=== PATIENT | male | born 1950 | race Caucasian/White ===

== ENCOUNTER 2017-07-08 09:35 | Day surgery (SDC) | payer MEDICARE, BC ==
--- NOTE | 2017-07-02 20:23 | HP ---
AMENDED REPORT NOW INCLUDES COSIGNER DESIGNATION - ESIGNED BEFORE ADJUSTMENT HISTORY AND PHYSICAL: DATE OF ADMISSION/SURGERY: 07/08/17 PROVIDER: Catina Ribeiro MD * (DICTATED BY YOSI PROCTOR) HISTORY OF PRESENT ILLNESS: Cortez is a 67-year-old male, who presents to the clinic for right wrist pain. He has continued to have right wrist pain for the last 6 months. He denies any history of injury, he feels that it may be related to some overuse. Symptoms occur at work when he is typing, also when he is cycling and playing guitar. He denies any previous injuries except for the left forearm fracture as a child. The pain is relieved by wearing wrist splints, using NSAIDs and stopping activity. He has been using indomethacin for his pain because he theorized this was gout. However, he has not had any recent flares of gout and has actually stopped taking the indomethacin because he feels like it is giving him tinnitus. He is not complaining of any numbness or tingling in his hand or wrist. The pain is primarily located at the ulnar aspect of each wrist and from this more globally and across the dorsum of the wrist. He had an MRI in May with arthrogram, which showed TFCC tear as well as a scapholunate ligament tear. Again, he has not had any injury and he is not symptomatic at the scapholunate junction. The TFCC tear is considerably bothersome to him. He has had a cortisone injection, which was done on . He followed up today to request surgical intervention of the TFCC tear. PAST MEDICAL HISTORY: Includes: 1. Depression. 2. Insomnia. PAST SURGICAL HISTORY: Hernia repair 50 years ago. MEDICATIONS: 1. Xanax. 2. Zolpidem. ALLERGIES: No known drug allergies. FAMILY HISTORY: Father with diabetes and cardiovascular disease with a bypass at 68 years of age. SOCIAL HISTORY: He denies history of smoking and is not a current smoker. He does have rare alcohol. He denies any illicit drugs use. REVIEW OF SYSTEMS: General: He denies fevers, chills, or night sweats. He has no known history of anesthesia problems. HEENT: He denies headache, lightheadedness, or syncopal events. Cardiothoracic: Negative for chest pain, heart palpitations or edema. Pulmonary: Negative for shortness of breath, chronic cough, or COPD. GI: He denies nausea, vomiting, diarrhea, or GERD. : Negative for urinary frequency, urinary urgency, or kidney problems. Musculoskeletal: Negative for chronic or intermittent back pain or fractures. Positive for the symptoms reviewed in the HPI. Neuro: He does endorse depression and anxiety. He denies numbness, seizures, stroke, epilepsy. Endocrine: Negative for diabetes or thyroid issues. Hematological: Negative for easy bruising, anemia, excessive bleeding, history of DVT or PE. PHYSICAL EXAMINATION VITAL SIGNS: Height 70 inches, weight 169 pounds, BMI 24.2. Pulse 62, blood pressure 122/76, temperature 97.0. GENERAL: Well-developed, well-nourished 67-year-old man, in no acute distress. HEENT: Normocephalic, atraumatic. Hearing and vision are grossly intact. PULMONARY: Lungs are clear to auscultation bilaterally. No wheezes, rales, or rhonchi. CARDIO: Regular rate and rhythm. No murmurs appreciated. No pedal edema. ABDOMEN: Soft and nontender. MUSCULOSKELETAL: Bilateral upper extremities, on inspection of bilateral wrists , there is no visible swelling, deformity, erythema, or ecchymosis. He does have tenderness to palpation that seems to be rather mild at the ulnar aspect of each wrist just distal to the ulna. It seems to be worse on the left than on the right. He has full range of motion bilaterally, actively, passively, and against resistance with no exacerbation of his symptoms. 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 He has negative Tinel's of the wrist and elbow bilaterally and negative Anastacio test bilaterally. He has good strength of his thumbs and finger with abduction and adduction. NEUROLOGIC: He is alert and oriented x3. No obvious neurological deficits are noted. He ambulates without a limp. STUDIES: MRI as reviewed in the HPI. IMPRESSION: Triangular fibrocartilage complex tear. PLAN: Right wrist arthroscopy triangular fibrocartilage complex debridement with Dr. Ribeiro on 07/08/17. The patient is to return 7 to 10 days postoperatively for suture removal and followup. A prescription for Deland has been sent to the patient's pharmacy of record, e-prescribed to the patient's pharmacy of record. I- STOP has been checked. FRANKI MARKER, YOSI [id number]/[facility] #: [id number] [facility] CENTERHaleigh
[~2017-07-08 09:35] MED LIST: Buffered Lidocaine 0.9% SYRIN* 5 ML/SYR SYRINGE INTRADERM ONE; Sodium Citrate/Citric Acid* 15 ML UDC ONE; Sodium Citrate/Citric Acid* 15 ML UDC PO ONE
[2017-07-08] MEDS ORDERED: ceFAZolin 2 GM PREMIX (*) 2 GM/50 ML BAG IVPB ONE (09:46)
[2017-07-08] MEDS ORDERED: Bupivacaine 0.5% SDV PF* 30 ML VIAL ONE (10:23)
[2017-07-08] MEDS ORDERED: Dexamethasone IV* 4 MG/ML 1 ML (4 MG) ONE (10:46)
[2017-07-08] MEDS ORDERED: Lidocaine 2% PF * 5 ML VIAL ONE (10:46)
[2017-07-08] MEDS ORDERED: Propofol* 10 MG/ML 20 ML BTL IV PUSH ONE (10:46)
[2017-07-08] MEDS ORDERED: Ketorolac INJ* 30 MG/ML 1 ML VIAL ONE (10:46)
[2017-07-08] MEDS ORDERED: fentaNYL* 50 MCG/ML 2 ML VIAL (100 MCG VIAL) ONE (10:46)
[2017-07-08] MEDS ORDERED: fentaNYL* 50 MCG/ML 2 ML VIAL (100 MCG VIAL) IV PRN (11:16)
[2017-07-08] MEDS ORDERED: Ondansetron INJ* 2 MG/ML VIAL IV PRN (11:16)
[2017-07-08 13:47] VITALS: BP 124/82
--- NOTE | 2017-07-09 09:17 | OP ---
DATE OF OPERATION: 07/08/17 [facility] DATE OF : 46 SURGEON: Catina Ribeiro MD GAUGE CHECKER: YOSI Woo ANESTHESIOLOGIST: Kobe Gross DO ANESTHESIA: General. PRE-OP DIAGNOSIS: Triangular fibrocartilage complex tear of the right wrist. POST-OP DIAGNOSES: 1. Triangular fibrocartilage complex tear of the right wrist. 2. Radiocarpal arthritis. OPERATIVE PROCEDURE: Right wrist arthroscopy and debridement. ESTIMATED BLOOD LOSS: Zero. TOURNIQUET TIME: About 40 minutes. INDICATION FOR PROCEDURE: Cortez is a 67-year-old man with pain in his right wrist, which has failed to improve with conservative treatment. MRI shows a TFCC tear and possible scapholunate ligament tear. The patient presents for arthroscopy of the right wrist and debridement of the TFCC tear. His pain is centered on the ulnar aspect of the wrist. DESCRIPTION OF PROCEDURE: The patient was brought to the operating room and was given a general anesthetic and placed in the supine position on the operating table with a tourniquet around his right upper arm. The skin of his right upper extremity was prepped and draped in the usual sterile fashion. The hand and forearm were exsanguinated and the tourniquet elevated to 250 mmHg. The finger was placed in finger trap and 10 pounds of weight was placed across the wrist joint. A stab incision was made just distal to Mert's tubercle and the arthroscopy cannula was placed in the radiocarpal joint. Diagnostic arthroscopy was performed. There was a full-thickness cartilage defect on the radius, a full thickness cartilage defect on the scaphoid. There was extensive fraying of the scapholunate ligament and positive drive-through sign into the mid carpal joint. There was a very significant and complex tear of the TFCC, abundant surrounding synovitis. A second portal was created in the 4-5 interval and a 2.0 Gator shaver was used to debride the TFCC and all the ulnar sided synovitis. Mid compartment arthroscopy was then performed through a third stab incision. The articular surface in the mid carpal joint were intact but again the scapholunate ligament was found to be not intact. The arthroscopy instruments were removed. The wounds were closed with 4-0 nylon suture in interrupted fashion and the wounds were dressed with Xeroform, 4x4, Webril, and an Danial wrap. The patient tolerated the procedure well and was brought to the recovery room in good condition. [id number]/[facility] #: [id number] [place]
== END 2017-07-08 12:25 | disposition home or self-care (01) ==
LOC: OREAST 09:35
PROVIDERS: ATTEND Orthopaedic Surgery
DX: S63.511A Sprain of carpal joint of right wrist, initial encounter (principal); X50.3XXA Overexertion from repetitive movements, initial encounter; Y93.89 Activity, other specified; Y92.9 Unspecified place or not applicable; M19.031 Primary osteoarthritis, right wrist; F41.8 Other specified anxiety disorders
CPT/HCPCS: A9270-GY; J0690; J1100; J1885; J2704; J3010

== ENCOUNTER 2017-10-03 09:35 | Day surgery (SDC) | payer MEDICARE, BC ==
--- NOTE | 2017-09-29 17:48 | HP ---
PREOPERATIVE HISTORY AND PHYSICAL: DATE OF ADMISSION: 10/03/17 [facility] CHIEF COMPLAINT: Left hand numbness and tingling. HISTORY OF PRESENT ILLNESS: Cortez is a 67-year-old man, who complains of numbness and tingling in his left hand. Nerve conduction study shows moderate carpal tunnel syndrome. He has had a cortisone injection with minimal relief. He presents for left carpal tunnel release. PAST MEDICAL HISTORY: Depression, insomnia, and right wrist TFCC tear. PAST SURGICAL HISTORY: Hernia repair and a right wrist arthroscopy. MEDICATIONS: 1. Xanax. 2. Zolpidem. ALLERGIES: None. FAMILY HISTORY: Diabetes, cardiovascular disease. SOCIAL HISTORY: Rare alcohol use. Denies illicit drug use. Denies history of smoking. He lives alone. REVIEW OF SYSTEMS: Negative for cephalic, cardiovascular, respiratory, gastrointestinal, genitourinary, other musculoskeletal, skin, neurologic, endocrine, and hematologic symptoms. PHYSICAL EXAMINATION GENERAL: He is a healthy-appearing very pleasant male in minimal distress at rest. VITAL SIGNS: He is 70 inches, weighs 180 pounds, pulse is , respirations 16, temperature 97.3. HEENT: Unremarkable. Good range of motion of his neck without pain. Eye movements are concentric. No masses are palpated. LUNGS: Clear to auscultation. Good inspiratory effort. No wheezing. CARDIAC: Regular rate and rhythm without murmur. PERIPHERAL VASCULAR: He has palpable pulses and no peripheral edema. EXTREMITIES: He has a positive Tinel's sign of the median nerve proximal to the wrist. He has weakness with thumb abduction. He has a positive Phalen's test. NEUROLOGIC: He is alert and oriented without focal deficits. IMPRESSION: Left carpal tunnel syndrome. PLAN: For left carpal tunnel release. The surgical procedure, risks, and benefits are explained to the patient and he agrees to proceed. I will see him back in followup for recheck approximately 10 days postop. [id number]/[facility] #: [id number] [facility]PITALHaleigh
[~2017-10-03 09:35] MED LIST changes: -Sodium Citrate/Citric Acid* 15 ML UDC ONE; -Sodium Citrate/Citric Acid* 15 ML UDC PO ONE
[2017-10-03] MEDS ORDERED: Naloxone* 0.4 MG/ML 1 ML VIAL IV PRN (11:03)
[2017-10-03] MEDS ORDERED: fentaNYL* 50 MCG/ML 2 ML VIAL (100 MCG VIAL) ONE (11:37)
[2017-10-03] MEDS ORDERED: Midazolam* 1 MG/ML 2 ML VIAL (2 MG) ONE (11:37)
[2017-10-03] MEDS ORDERED: Lidocaine 2% PF * 5 ML VIAL ONE (11:43)
[2017-10-03] MEDS ORDERED: Propofol* 10 MG/ML 20 ML BTL IV PUSH ONE (11:43)
[2017-10-03 12:33] VITALS: BP 140/83
--- NOTE | 2017-10-04 11:13 | OP ---
DATE OF OPERATION: 10/03/17 [facility] DATE OF : 46 SURGEON: Catina Ribeiro MD INSURANCE COUNSELOR: YOSI Hamm ANESTHESIA: Local MAC. PRE-OP DIAGNOSIS: Left carpal tunnel syndrome. POST-OP DIAGNOSIS: Left carpal tunnel syndrome. OPERATIVE PROCEDURE: Left carpal tunnel release. ESTIMATED BLOOD LOSS: Zero. TOURNIQUET TIME: 8 minutes. INDICATIONS: Cortez is a 67-year-old man with numbness and tingling in the median nerve distribution of his left hand. He presents for left carpal tunnel release. DESCRIPTION OF PROCEDURE: The patient was brought to the operating room, he was given a sedation anesthetic and a local infiltration of 10 cc of 1% plain lidocaine in the palm of his left hand. The skin of his left hand and forearm was prepped and draped in usual sterile fashion. The hand and forearm were exsanguinated and the tourniquet elevated to 250 mmHg. A longitudinal incision was made in the palm in line with the ring finger. We dissected through the subcutaneous tissue down to the transverse carpal ligament. The ligament was divided sharply with a knife and then more proximally with the scissors. The nerve was dissected free from the surrounding tissue and there was an area of moderate compression at the mid portion of the ligament. The wound was irrigated and the skin edges were reapproximated with 4-0 nylon suture. The wound was dressed with Xeroform, 4x4, Webril, and an Danial wrap. The patient tolerated the procedure well, was brought to the recovery room in good condition. [id number]/[facility] #: [id number] [facility]IMINALLY INSANEHaleigh
== END 2017-10-03 12:29 | disposition home or self-care (01) ==
LOC: OREAST 09:35
PROVIDERS: ATTEND Orthopaedic Surgery
DX: G56.02 Carpal tunnel syndrome, left upper limb (principal); F32.9 Major depressive disorder, single episode, unspecified; G47.00 Insomnia, unspecified
CPT/HCPCS: J2250; J2704; J3010

== ENCOUNTER 2018-12-21 05:29 | Observation (INO) | payer MEDICARE, BC ==
--- NOTE | 2018-12-14 10:36 | HP ---
Amended report to enter cosigning physician. HISTORY AND PHYSICAL: DATE OF ADMISSION/SURGERY: 12/21/18 DATE OF OFFICE VISIT: 12/11/18 SURGEON: Dolores Monique MD* (dictated by YOSI Pires). PROCEDURE: Right knee medial unicompartment arthroplasty. CHIEF COMPLAINT: Right knee pain. HISTORY OF PRESENT ILLNESS: Mr. Alexis is a 68-year-old gentleman with complaints of right medial knee pain. X-rays confirmed advanced arthritis of the medial compartment. He has elected to proceed with a right knee medial unicompartment arthroplasty. PAST MEDICAL HISTORY: Denies. PAST SURGICAL HISTORY: Bilateral wrist surgery, hernia repair, and oral surgery. CURRENT MEDICATIONS: 1. Ambien 5 mg q.h.s. as needed. 2. Diclofenac 75 mg twice a day. 3. Xanax as needed. ALLERGIES: To PENICILLIN. FAMILY HISTORY: Cancer, coronary artery disease, diabetes, and seizure. SOCIAL HISTORY: A 68-year-old gentleman lives with his son. He does not smoke or use drugs. Uses alcohol rarely. REVIEW OF SYSTEMS: A complete 14-point review of systems was reviewed with the patient. It was all negative or noncontributory. PHYSICAL EXAMINATION GENERAL: He is well developed, well nourished, in no acute distress. He is alert and oriented x3. VITAL SIGNS: He stands 70 inches tall, weighs 182 pounds. Blood pressure is 110/70, heart rate 62. HEENT: Normocephalic, atraumatic. NECK: Supple. No palpable lymph nodes. PULMONARY: The lungs are clear to auscultation bilaterally. CARDIO: Regular rate and rhythm. Strong S1, S2. ABDOMEN: Soft, nontender, nondistended. NEUROLOGICAL: He is alert and oriented x3. MUSCULOSKELETAL: Right lower extremity, the skin is intact. There are no open wounds or abrasions. There is some tenderness along the medial joint line. There is a moderate joint effusion. Range of motion is 5 to 125 degrees of flexion. He has a 2+ dorsalis pedis pulse, intact sensation. His lower extremity muscle group strengths were intact at 5/5. ASSESSMENT AND PLAN: Mr. Alexis is a 68-year-old gentleman with complaints of medial knee pain. X-rays confirmed significant medial compartment arthritis and he has elected to proceed with right knee medial unicompartment arthroplasty. The surgery is scheduled for 12/21/[address] Monique discussed the risks and benefits of the surgery at today's visit and all of his questions were answered. He will follow up with Dr. Monique 2 weeks after the surgery. YOSI PIRES [id number]/[facility] #: [id number] MTDHaleigh
[~2018-12-21 05:29] MED LIST changes: -Buffered Lidocaine 0.9% SYRIN* 5 ML/SYR SYRINGE INTRADERM ONE; +Buffered Lidocaine 1% SYRIN* 1 ML/SYRINGE INTRADERM ONE; +Lactated Ringers 1000 ML Bag* 1,000 ML IV SCH; +Tranexamic Acid 1,000 MG in NS 0.9% 50 ML* (outpatient use) IV SCH
--- OUTSIDE RECORDS SUMMARY | 2018-12-21 05:33 | XMS REPORT | Continuity of Care Document ---
:1950 External Reference #:[id number] Author Name Valerie Reynaga Care Team Providers Name Role Phone Zack Mott MD Primary Care Physician Unavailable Payers Date Identification Numbers Payment Provider Subscriber Policy Number: [id number] Medicare [place] Alexis PayID: [id number] [address] [place] [address] Expires: 2017 Policy Number: [id number] Medicare [place] Alexis PayID: [id number] [address] [place] [address] Policy Number: [id number] [facility] Cort[place] Alexis PayID: [id number] [address] [place] [address] Advance Directives Description No Information Available Problems Active Problems Provider Date Mononeuritis of lower limb Alli Magana M.D. 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 Take with food Xanax prn Unknown Ambien 1 tab po qHS prn Unknown 5mg Tablets History Medications Indomethacin ER 1 by mouth three 60caps S63.511D Catina 11/26/2017 - times a day as Stone Ribeiro 09/15/2018 75mg Capsules ER needed swelling or pain Tramadol take one tablet by 30tabs Catina 10/03/2017 - Hydrochloride/Aceta mouth every 4-5 Stone Ribeiro 08/25/2018 minophen hours as needed for 37.5-325mg pain. Tablets [place] Take 1-2 tablets 20tabs Catina 07/02/2017 - 5-325mg every 4-6 hours as Stone Ribeiro 10/21/2016 Tablets needed for pain. Medrol take as directed 1pak Catina 02/26/2017 - 4mg TBPK per dosepak Stone Ribeiro 05/24/2017 instructions Trazodone HCL Unknown - 06/09/2018 Zolpidem Tartrate Unknown - 09/15/2018 Medications Administered in Office Medication SIG Qnty Indications Ordering Provider Date Depomedrol 40MG Catina Ribeiro M.D. 07/08/2018 Injection Depomedrol 40MG Catina Ribeiro M.D. 06/10/2018 Injection Depomedrol 40MG Catina Ribeiro M.D. 03/19/2018 Injection Depomedrol 40MG Catina Ribeiro M.D. 09/01/2017 Injection Depomedrol 40MG Catina Ribeiro M.D. 06/19/2017 Injection Depomedrol 40MG Catina Ribeiro M.D. 05/26/2017 Injection Immunizations Description No Information Available Vital Signs Date Vital Result Comment 12/11/2018 12:55pm Height 70 inches 5'10" Weight 182.00 lb Heart Rate 62 /min BP Systolic 110 mmHg BP Diastolic 70 mmHg Respiratory Rate 18 /min Body Temperature 97.7 F Pain Level 1 BMI (Body Mass Index) 26.1 kg/m2 11/25/2018 9:26am Height 70 inches 5'10" Weight 180.50 lb Heart Rate 60 /min BP Systolic 122 mmHg BP Diastolic 86 mmHg Respiratory Rate 18 /min Body Temperature 98.1 F Pain Level 6 BMI (Body Mass Index) 25.9 kg/m2 11/13/2018 2:58pm Height 70 inches 5'10" Weight 175.00 lb Heart Rate 70 /min BP Systolic 114 mmHg BP Diastolic 70 mmHg Respiratory Rate 20 /min Pain Level 4 BMI (Body Mass Index) 25.1 kg/m2 09/24/2018 10:16am Height 70 inches 5'10" Heart Rate 67 /min BP Systolic 118 mmHg BP Diastolic 78 mmHg Respiratory Rate 18 /min Body Temperature 98.0 F Pain Level 2 09/16/2018 10:37am Height 70 inches 5'10" Weight 175.00 lb Heart Rate 72 /min BP Systolic 122 mmHg BP Diastolic 86 mmHg BMI (Body Mass Index) 25.1 kg/m2 08/27/2018 10:09am Height 70 inches 5'10" Weight 175.00 lb BP Systolic 134 mmHg BP Diastolic 81 mmHg Respiratory Rate 16 /min Pain Level 7 BMI (Body Mass Index) 25.1 kg/m2 08/26/2018 2:40pm Height 70 inches 5'10" Weight 180.00 lb Heart Rate 60 /min Respiratory Rate 15 /min Body Temperature 97.9 F Pain Level 5 BMI (Body Mass Index) 25.8 kg/m2 07/08/2018 9:34am Height 70 inches 5'10" Weight 180.00 lb BP Systolic 134 mmHg BP Diastolic 92 mmHg Respiratory Rate 16 /min Body Temperature 97.0 F Pain Level 7 BMI (Body Mass Index) 25.8 kg/m2 06/10/2018 9:55am Height 70 inches 5'10" Heart Rate 56 /min BP Systolic Sitting 148 mmHg BP Diastolic Sitting 94 mmHg Respiratory Rate 16 /min Body Temperature 97.6 F 03/19/2018 1:10pm Height 70 inches 5'10" Heart Rate 58 /min BP Systolic 126 mmHg BP Diastolic 80 mmHg Respiratory Rate 16 /min Body Temperature 97.8 F Pain Level 8 11/26/2017 2:23pm Height 70 inches 5'10" Heart Rate 68 /min BP Systolic 126 mmHg BP Diastolic 76 mmHg Respiratory Rate 16 /min Body Temperature 97.3 F Pain Level 2 11/03/2017 9:12am Height 70 inches 5'10" Heart Rate 59 /min BP Systolic 142 mmHg BP Diastolic 90 mmHg Respiratory Rate 16 /min Body Temperature 97.0 F Pain Level 0 10/13/2017 9:21am Height 70 inches 5'10" Heart Rate 57 /min BP Systolic 130 mmHg BP Diastolic 64 mmHg Respiratory Rate 16 /min Body Temperature 97.5 F Pain Level 2 09/29/2017 9:37am Height 70 inches 5'10" Weight 180.00 lb Heart Rate 53 /min Respiratory Rate 16 /min Body Temperature 97.3 F Pain Level 4 BMI (Body Mass Index) 25.8 kg/m2 09/01/2017 9:32am Height 70 inches 5'10" Body Temperature 97.6 F 08/20/2017 9:13am Height 70 inches 5'10" Weight 169.00 lb Heart Rate 62 /min Respiratory Rate 14 /min Body Temperature 97.8 F Pain Level 2 BMI (Body Mass Index) 24.2 kg/m2 07/18/2017 8:51am Height 70 inches 5'10" Weight 169.00 lb Heart Rate 74 /min BP Systolic 140 mmHg BP Diastolic 90 mmHg Body Temperature 95.2 F Pain Level 2 BMI (Body Mass Index) 24.2 kg/m2 07/02/2017 8:34am Height 70 inches 5'10" Weight 169.00 lb Heart Rate 62 /min BP Systolic 122 mmHg BP Diastolic 76 mmHg Body Temperature 97.0 F BMI (Body Mass Index) 24.2 kg/m2 06/19/2017 8:46am Height 70 inches 5'10" Weight 169.00 lb Heart Rate 68 /min Respiratory Rate 16 /min Body Temperature 97.6 F Pain Level 3 BMI (Body Mass Index) 24.2 kg/m2 06/04/2017 8:48am Height 70 inches 5'10" Weight 169.00 lb Heart Rate 62 /min BP Systolic 102 mmHg BP Diastolic 63 mmHg Body Temperature 96.5 F BMI (Body Mass Index) 24.2 kg/m2 05/26/2017 9:15am Height 70 inches 5'10" Weight 169.00 lb Heart Rate 57 /min BP Systolic 105 mmHg BP Diastolic 65 mmHg Body Temperature 95.3 F BMI (Body Mass Index) 24.2 kg/m2 04/15/2017 3:48pm Height 70 inches 5'10" Weight 169.00 lb BP Systolic 130 mmHg BP Diastolic 80 mmHg Respiratory Rate 16 /min Pain Level 3 BMI (Body Mass Index) 24.2 kg/m2 04/09/2017 7:59am Height 70 inches 5'10" Weight 169.00 lb Heart Rate 60 /min BP Systolic 128 mmHg BP Diastolic 88 mmHg Respiratory Rate 15 /min Body Temperature 95.7 F Pain Level 1 BMI (Body Mass Index) 24.2 kg/m2 02/26/2017 8:05am Height 70 inches 5'10" Weight 169.00 lb Heart Rate 65 /min BP Systolic 130 mmHg BP Diastolic 90 mmHg Respiratory Rate 17 /min Pain Level 3 BMI (Body Mass Index) 24.2 kg/m2 10/09/2011 1:10pm Height 70 inches 5'10" Weight 190.00 lb Heart Rate 57 /min BP Systolic 145 mmHg BP Diastolic 86 mmHg BMI (Body Mass Index) 27.3 kg/m2 Results Test Date Facility Test Result H/L Range Note CBC Auto Diff 12/11/2018 [facility] White Blood 8.3 10^3/uL N 3.5-10.[address] [place] [address] [phone] Red Blood Count 5.20 10^6/uL N 4.18-5.48 Hemoglobin 16.1 g/dL N 14.0-18.0 Hematocrit 47 % High 36-46 Mean Corpuscular Volume 90 fL N 80-94 Mean Corpuscular Hemoglobin 31 pg N 27-31 Mean Corpuscular HGB Conc 35 g/dL N 31-36 Red Cell Distribution Width 13 % N 10.5-15 Platelet Count 213 10^3/uL N 150-450 Mean Platelet Volume 7.5 fL N 7.4-10.4 Abs Neutrophils 5.0 10^3/uL N 1.5-7.7 Abs Lymphocytes 2.2 10^3/uL N 1.0-4.8 Abs Monocytes 0.8 10^3/uL N 0-0.8 Abs Eosinophils 0.2 10^3/uL N 0-0.6 Abs Basophils 0.1 10^3/uL N 0-0.2 Abs Nucleated RBC 0 10^3/uL Granulocyte % 60.1 % Lymphocyte % 26.5 % Monocyte % 10.1 % Eosinophil % 2.6 % Basophil % 0.7 % Nucleated Red Blood Cells % 0.1 Comp Metabolic Panel 12/11/2018 [facility] Sodium 141 mmol/L N 135-[address] [place] [address] [phone] Potassium 4.1 mmol/L N 3.5-5.0 Chloride 105 mmol/L N 101-111 Co2 Carbon Dioxide 30 mmol/L N 22-32 Anion Gap 6 mmol/L N 2-11 Glucose 96 mg/dL N 70-100 Blood Urea Nitrogen 12 mg/dL N 6-24 Creatinine 0.94 mg/dL N 0.67-1.17 BUN/Creatinine Ratio 12.8 N 8-20 Calcium 9.3 mg/dL N 8.6-10.3 Total Protein 6.6 g/dL N 6.4-8.9 Albumin 4.4 g/dL N 3.2-5.2 Globulin 2.2 g/dL N 2-4 Albumin/Globulin Ratio 2.0 N 1-3 Total Bilirubin 0.80 mg/dL N 0.2-1.0 Alkaline Phosphatase 60 U/L N 34-104 Alt 29 U/L N 7-52 Ast 19 U/L N 13-39 Egfr Non- 79.3 >60 Egfr 96.0 >60 1 Inr/Protime 12/11/2018 [facility] Inr 0.87 N 0.77-1.[address] [place] [address] [phone] Laboratory test 12/11/2018 [facility] Partial 31.7 seconds N 26.0-36.[address] [place] [address] PTT [phone] Urinalysis 12/11/2018 [facility] Urine Color Yellow Profile [address] [place] [address] [phone] Urine Appearance Clear Urine Specific [place] 1.013 N 1.010-1.030 Urine pH 6.0 N 5-9 Urine Urobilinogen Negative Negative Urine Ketones Negative Negative Urine Protein Negative Negative Urine Leukocytes Negative Negative Urine Blood 1+ Abnormal Negative Urine Nitrite Negative Negative Urine Bilirubin Negative Negative Urine Glucose Negative Negative Urine White Blood Cell Absent Absent Urine Red Blood Cell 1+(3-5/hpf) Abnormal Absent Urine Bacteria Absent Absent Type & Screen 12/11/2018 [facility] Patient Blood Type AB Negative [address] [place] [address] [phone] Antibody Screen NEGATIVE Urine Culture And 12/11/2018 [facility] Urine Culture SEE RESULT [address] [place] [address] [phone] 1 Because ethnic data is not always readily available, this report includes an eGFR for both -Americans and non- Americans. The National Kidney Disease Education Program (NKDEP) does not endorse the use of the MDRD equation for patients that are not between the ages of 18 and 70, are , have extremes of body size, muscle mass, or nutritional status, or are non- or non-. According to the National Kidney Foundation, irrespective of diagnosis, the stage of the disease is based on the level of kidney function: Stage Description GFR(mL/min/1.73 m(2)) 1 Kidney damage with normal or decreased GFR 90 2 Kidney damage with mild decrease in GFR 60-89 3 Moderate decrease in GFR 30-59 4 Severe decrease in GFR 15-29 5 Kidney failure <15 (or dialysis) 2 SEE RESULT BELOW Name: CORTEZ ALEXIS : [address]: Dolores Monique MD Acct: [id number] Unit: [id number] AGE: 68 Location: [facility] Re12/11/18 SEX: M Status: REG REF SPEC: [id number] YUNG: 12/11/18-1639 [facility] DR: Dolores Monique MD REQ: [id number] RECD: 12/11/18 STATUS: COMP OTHR DR: Zack Mott MD _ SOURCE: URINE SPDESC: ORDERED: Urine Culture QUERIES: Urine Source: Clean Catch Procedure Result Reported Site Urine Culture Final 12/12/18- 1604 ML No Growth (<1,000 CFU/mL) * ML - Main Lab . END OF REPORT DEPARTMENT OF PATHOLOGY, [address] [place] [address] Talon Davis M.D. Director [facility] # [id number] Procedures Date Code Description Status 07/08/2018 Inject/Drain Joint/Bursa Intermediate W/O US Completed 06/10/201893492 Inject Tendon Sheath Or Ligament Aponeurosis Eg Plantar Completed Fascia 03/19/2018 Inject/Drain Joint/Bursa Intermediate W/O US Completed 10/10/2017 87565 Holter Monitor Review (24 hr)dr chavez & billie only Completed 10/08/2017 25261 ECG Monitor/Recording W/Visual Superimposition Scanning Completed 10/03/2017 00286 Carpal Tunnel Release Completed 10/03/2017 25788 Carpal Tunnel Release Completed 09/01/2017 Injection, Carpal Tunnel Completed 07/08/2017 75296 Arthroscopy Wrist Excision/Repair Triang Completed Fibrocartilage/Debride 07/08/2017 16433 Arthroscopy Wrist Excision/Repair Triang Completed Fibrocartilage/Debride 06/19/201711811 Inject Tendon Sheath Or Ligament Aponeurosis Eg Plantar Completed Fascia 05/26/201728955 Inject/Drain Joint/Bursa Intermediate W/O US Completed 10/09/2011 97518 Rad Exam; Foot Comp Completed 10/09/2011 45565 Rad Exam; Ankle Limited Completed Encounters Type Date Location Provider Dx Diagnosis Office Visit 11/25/2018 Orthopedic Alli Luciano 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 right wrist Office Visit 08/27/2018 Orthopedic Minda Ly, M25.561 Pain in right knee 9:45a Services Of MD Perez M17.11 Unilateral primary osteoarthritis, right knee Office Visit 08/26/2018 Orthopedic Yessenia M19.231 Secondary 2:00p Services Of SHIELA Puente osteoarthritis, C.M.A. right wrist Office Visit 06/10/2018 Orthopedic Catina M65.831 Other synovitis and 10:00a Services Of Stone Ribeiro tenosynovitis, right C.M.A. 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 wrist, subsequent encounter Office Visit 09/29/2017 Orthopedic Catina G56.02 Carpal tunnel 9:30a Services Of Stone Ribeiro syndrome, left C.M.A. upper limb S63.511D Sprain of carpal joint of right wrist, subsequent encounter Office Visit 08/20/2017 9:45a Orthopedic Yessenia S63.511D Sprain of carpal Services Of Bitting, RPA-C joint of right C.M.A. wrist, subsequent encounter G56.02 Carpal tunnel syndrome, left upper limb Office Visit 07/02/2017 Orthopedic Catina S63.511D Sprain of carpal 8:45a Services Of Stone Ribeiro joint of right C.M.A. wrist, subsequent encounter Office Visit 06/19/2017 Orthopedic Catina M65.831 Other synovitis 8:45a Services Of Stone Ribeiro and C.M.A. tenosynovitis, right forearm S63.511D Sprain of carpal joint of right wrist, subsequent encounter M65.832 Other synovitis and tenosynovitis, left forearm Office Visit 06/04/2017 9:15a Orthopedic Yessenia Puente M25.531 Pain in Services Of C.M.A. RPA-C right wrist Office Visit 04/15/2017 3:00p Orthopedic Minda Ly MD M25.462 Effusion, Services Of C.M.A. left knee M17.12 Unilateral primary osteoarthritis, left knee M71.22 Synovial cyst of popliteal space [[place]], left knee Office Visit 04/09/2017 9:00a Orthopedic Yessenia Puente M25.531 Pain in Services Of C.M.A. RPA-C right wrist M25.532 Pain in left wrist Office Visit 02/26/2017 9:00a Orthopedic Yessenia Puente M25.531 Pain in Services Of C.M.A. RPA-C right wrist M25.532 Pain in left wrist Office Visit 10/09/2011 1:00p Orthopedic Alli 355.8 Mononeuritis Lower Services Of Stone Magana Limb Unspec C.M.A. Plan of Treatment Future Appointment(s):01/01/2019 10:15 am - Dolores Monique M.D. at [facility].12/15/2018 1:30 pm - Alli Luciano MD at [facility]12/21/2018 7:30 am - YOSI Krishna at [facility]12/21/2018 7:30 am - Dolores Monique M.D. at [facility]12/11/2018 - Dolores Monique M.D.M17.11 Unilateral primary osteoarthritis, right kneeNew Therapy:Physical TherapyFollow up:Follow up: 2 weeks after mdjpqbsC56.561 Pain in right knee
--- OUTSIDE RECORDS SUMMARY | 2018-12-21 05:33 | XMS REPORT | Continuity of Care Document ---
:1950 External Reference #:[id number] Author Name Sushila Weaver Care Team Providers Name Role Phone Zack Mott MD Primary Care Physician Unavailable Payers Date Identification Numbers Payment Provider Subscriber Policy Number: [id number] Medicare [place] Alex[place] PayID: [id number] [address] [place] [address] Expires: 2017 Policy Number: [id number] Medicare [place] PayID: [id number] [address] [place] [address] Policy Number: [id number] [facility] [place] Alexis PayID: [id number] [address] [place] [address] Advance Directives Description No Information Available Problems Active Problems Provider Date Mononeuritis of lower limb Alli Magana M.D. 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 Tablets [place] Take 1-2 tablets 20tabs Catina 07/02/2017 - [...] Available Vital Signs Date Vital Result Comment 12/15/2018 1:38pm Height 70 inches 5'10" Weight 185.75 lb Heart Rate 84 /min BP Systolic 110 mmHg BP Diastolic 70 mmHg Respiratory Rate 14 /min Pain Level 3 BMI (Body Mass Index) 26.6 kg/m2 12/11/2018 12:55pm Height 70 inches 5'10" Weight [...] H/L Range Note CBC Auto Diff 12/11/2018 [facility] White Blood 8.3 10^3/uL N 3.5-10.[address] [place] [address] [phone] Red Blood Count 5.20 10^6/uL N 4.18-5.48 [...] Cells % 0.1 Comp Metabolic Panel 12/11/2018 [facility] Sodium 141 mmol/L N 135-145 [address] [place] [address] [phone] Potassium 4.1 mmol/L N 3.5-5.0 Chloride 105 [...] >60 Egfr 96.0 >60 1 Inr/Protime 12/11/2018 [facility] Inr 0.87 N 0.77-1.02 [address] [place] [address] [phone] Laboratory test 12/11/2018 [facility] Partial 31.7 seconds N 26.0-36.3 finding [place] [address] PTT [phone] Urinalysis 12/11/2018 [facility] Urine Color Yellow Profile [address] [place] [address] [phone] Urine Appearance Clear Urine Specific [place] 1.013 N 1.010-1.030 Urine pH 6.0 N 5-9 Urine Urobilinogen Negative Negative Urine Ketones Negative Negative Urine Protein Negative Negative Urine Leukocytes Negative Negative Urine Blood 1+ Abnormal Negative Urine Nitrite Negative Negative Urine Bilirubin Negative Negative Urine Glucose Negative Negative Urine White Blood Cell Absent Absent Urine Red Blood Cell 1+(3-5/hpf) Abnormal Absent Urine Bacteria Absent Absent Type & Screen 12/11/2018 [facility] Patient Blood Type AB Negative [address] [place] [address] [phone] Antibody Screen NEGATIVE Urine Culture And 12/11/2018 [facility] Urine Culture SEE RESULT [address] [place] [address] [phone] 1 Because ethnic data is not always [...] [address]: Dolores Monique MD Acct: [id number] Unit: [id number] AGE: 68 Location: [facility] Re12/11/18 SEX: M Status: REG REF SPEC: [id number] YUNG: 12/11/[address]: Dolores Monique MD REQ: [id number] RECD: 12/11/18 STATUS: JARRET HORN DR: Zack Mott MD _ SOURCE: URINE SPDESC: ORDERED: Urine Culture QUERIES: Urine Source: Clean Catch Procedure Result Reported Site Urine Culture Final 12/12/18- 1604 ML No Growth (<1,000 CFU/mL) * ML - Main Lab . END OF REPORT DEPARTMENT OF PATHOLOGY, [address] [place] [address] Talon Davis M.D. Director [facility] # [id number] Procedures Date Code Description Status 07/08/2018 Inject/Drain Joint/Bursa Intermediate W/O US Completed 06/10/2018 Inject Tendon Sheath Or Ligament Aponeurosis Eg Plantar Completed Fascia 03/19/2018 Inject/Drain Joint/Bursa Intermediate W/O US Completed 10/10/2017 95786 Holter Monitor Review (24 hr)dr review & interp only Completed 10/08/2017 51927 ECG Monitor/Recording W/Visual Superimposition Scanning Completed 10/03/2017 40163 Carpal Tunnel Release Completed 10/03/2017 70683 Carpal Tunnel Release Completed 09/01/201784725 Injection, Carpal Tunnel Completed 07/08/2017 46606 Arthroscopy Wrist Excision/Repair Triang Completed Fibrocartilage/Debride 07/08/2017 82379 Arthroscopy Wrist Excision/Repair Triang Completed Fibrocartilage/Debride 06/19/2017 61551 Inject Tendon Sheath Or Ligament Aponeurosis Eg Plantar Completed Fascia 05/26/201727859 Inject/Drain Joint/Bursa Intermediate W/O US Completed 10/09/2011 57719 Rad Exam; Foot Comp Completed 10/09/2011 64076 Rad Exam; Ankle Limited Completed Encounters Type [...] Ly M17.11 Unilateral primary 10:15a Services Of Concepcion Esquivel.MJoelAJoel right knee Office Visit 09/16/2018 Orthopedic Catina M19.231 Secondary 10:45a Services Of Stone Ribeiro osteoarthritis, C.M.A. right wrist Office Visit 08/27/2018 Orthopedic Minda Ly M25.561 Pain in right knee 9:45a Services Of MD Perez M17.11 Unilateral primary osteoarthritis, right knee Office Visit 08/26/2018 Orthopedic Yessenia M19.231 Secondary 2:00p Services Of SHIELA Puente osteoarthritis, C.M.A. right wrist Office Visit 06/10/2018 Orthopedic Catina M65.831 Other synovitis and 10:00a Services Of Stone Ribeiro tenosynovitis, right C.M.A. 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 RPA-C [...] wrist Office Visit 02/26/2017 9:00a Orthopedic Yessenia Puente, M25.531 Pain in Services Of Ana KUO right wrist M25.532 Pain in left wrist Office Visit 10/09/2011 1:00p Orthopedic Alli 355.8 Mononeuritis Lower Services Of Stone Magana Limb Unspec Concepcion.MMickie Plan of Treatment Future Appointment(s):01/01/2019 10:15 am - Dolores Monique M.D. at Orthopedic Services Of C.M.AJoel12/21/2018 7:30 am - YOSI Krishna at Orthopedic Services Of C.M.AJoel12/21/2018 7:30 am - Dolores Monique M.D. at [facility] C.M.AJoel
--- OUTSIDE RECORDS SUMMARY | 2018-12-21 05:33 | XMS REPORT | Continuity of Care Document ---
:1950 External Reference #:[id number] Author Name Trini Cordero Care Team Providers Name Role Phone aZck Mott MD Primary Care Physician Unavailable Payers Date Identification Numbers Payment Provider Subscriber Policy Number: [id number] Medicare Cortez Alexis PayID: [id number] [address] [place] [address] Expires: 2017 Policy Number: [id number] Medicare Cortez Alexis PayID: [id number] [address] [place] [address] Policy Number: [id number] [facility] Cortez Alexis PayID: [id number] [address] [place] [address] Advance Directives Description No Information Available Problems Active Problems Provider Date Mononeuritis of lower limb Alli Magana M.D. 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 Tablets Bath Take 1-2 tablets 20tabs Catina 07/02/2017 - 5-325mg every 4-6 hours as Stone Ribeiro 10/21/2016 Tablets needed for pain. Medrol take as directed 1pak Catina 02/26/2017 - 4mg TBPK per doseparobyn Ribeiro M.D. 05/24/2017 instructions Trazodone HCL Unknown - 06/09/2018 [...] BMI (Body Mass Index) 27.3 kg/m2 Results Description No Information Available Procedures Date Code Description Status 07/08/2018 Inject/Drain Joint/Bursa Intermediate W/O US Completed 06/10/2018 30348 Inject Tendon Sheath Or Ligament Aponeurosis Eg Plantar Completed Fascia 03/19/2018 21866 Inject/Drain Joint/Bursa Intermediate W/O US Completed 10/10/2017 91820 Holter Monitor Review (24 hr)dr review & interp only Completed 10/08/2017 24197 ECG Monitor/Recording W/Visual Superimposition Scanning Completed 10/03/2017 91878 Carpal Tunnel Release Completed 10/03/2017 13411 Carpal Tunnel Release Completed 09/01/2017 50273 Injection, Carpal Tunnel Completed 07/08/2017 21488 Arthroscopy Wrist Excision/Repair Triang Completed Fibrocartilage/Debride 07/08/2017 51223 Arthroscopy Wrist Excision/Repair Triang Completed Fibrocartilage/Debride 06/19/2017 31555 Inject Tendon Sheath Or Ligament Aponeurosis Eg Plantar Completed Fascia 05/26/201759694 Inject/Drain Joint/Bursa Intermediate W/O US Completed 10/09/2011 52343 Rad Exam; Foot Comp Completed 10/09/2011 14420 Rad Exam; Ankle Limited Completed Encounters Type Date Location Provider Dx Diagnosis Office Visit 11/25/2018 Orthopedic Alli Luciano, 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 right knee Office Visit 09/16/2018 Orthopedic Catina M19.231 Secondary 10:45a Services Of Stone Ribeiro osteoarthritis, C.M.A. right wrist Office Visit 08/27/2018 Orthopedic Minda Ly, M25.561 Pain in right knee 9:45a Services Of MD TylerMMickie M17.11 Unilateral primary osteoarthritis, right knee Office Visit 08/26/2018 Orthopedic Yessenia M19.231 Secondary 2:00p Services Of Bitting, RPA-C osteoarthritis, C.M.A. right wrist Office Visit 06/10/2018 Orthopedic Catina M65.831 Other synovitis and 10:00a Services Of Stone Ribeiro tenosynovitis, right C.M.A. 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 at [facility]12/11/2018 - Dolores Monique M.D.M17.11 Unilateral primary osteoarthritis, right kneeNew Therapy:Physical TherapyFollow up:Follow up: 2 weeks after dohnedvY84.561 Pain in right knee
--- OUTSIDE RECORDS SUMMARY | 2018-12-21 05:33 | XMS REPORT | Continuity of Care Document ---
:1950 External Reference #:[id number] Author Name Violet Merino Care Team Providers Name Role Phone Zack Mott MD Primary Care Physician Unavailable Payers Date Identification Numbers Payment Provider Subscriber Policy Number: [id number] Medicare Cortez Alexis PayID: [id number] [address] [place] [address] Expires: 2017 Policy Number: [id number] Medicare Cortez Alexis PayID: [id number] [address] [place] [address] Policy Number: [id number] [facility] Cortez Alexis PayID: [id number] [address] [place] [address] Advance Directives Description No Information Available Problems Date Description Provider Status Onset: 08/09/2013 Mononeuritis of lower limb Alli Magana M.D. 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 Take with food Xanax 00// Active prn Unknown 0000 Ambien 00// Active Tablets 5mg 1 tab po qHS Unknown 0000 prn Indomethacin 11/26/ Hx Capsules 75mg 60cap 1 by mouth S63.511D Catina ER 2018 - ER s three times a Ribeiro, 09/15/ day as needed M.D. 2018 swelling or pain Tramadol 10/03/ Hx Tablets 37.5-325m 30tab take one Catina Hydrochloride/ 2017 - g s tablet by Ribeiro, Acetaminophen 08/25/ mouth every M.D. 2018 4-5 hours as needed for pain. [place] 07/02/ Hx Tablets 5-325mg 20tab Take 1-2 Catina 2017 - s tablets every Ribeiro, 10/21/ 4-6 hours as M.D. 2016 needed for pain. Medrol 02/26/ Hx TBPK 4mg 1pak take as Catina 2016 - directed per Gema, 05/24/ dosepak M.DJoel 2017 instructions Trazodone HCL / Hx Unknown 0000 - 2017 Zolpidem / Hx Unknown Tartrate - 2018 Medications Administered in Office Medication Date Status Form Strength Qnty SIG Indications Ordering Provider Depomedrol Administered Injection Catina 40MG Sandy Ribeiro M.D. Depomedrol Administered Injection Catina 40MG Sandy Ribeiro M.D. Depomedrol Administered Injection Catina 40MG Sandy Ribeiro M.D. Depomedrol Administered Injection Catina 40MG Sandy Ribeiro M.D. Depomedrol Administered Injection Catina 40MG 017 Stone Ribeiro Depalma deliarol Administered Injection Catina 40MG Kat Ribeiro M.D. Immunizations Description No Information Available Vital Signs Date Vital Result Comment 11/25/2018 9:26am Height 70 inches 5'10" Weight [...] Information Available Procedures Date Code Description Status 07/08/201862675 Inject/Drain Joint/Bursa Intermediate W/O US Completed 06/10/2018 16987 Inject Tendon Sheath Or Ligament Aponeurosis Eg Plantar Completed Fascia 03/19/201800487 Inject/Drain Joint/Bursa Intermediate W/O US Completed 10/10/2017 49786 Holter Monitor Review (24 hr)dr review & interp only Completed 10/08/2017 03567 ECG Monitor/Recording W/Visual Superimposition Scanning Completed 10/03/2017 38573 Carpal Tunnel Release Completed 10/03/2017 53898 Carpal Tunnel Release Completed 09/01/2017 00498 Injection, Carpal Tunnel Completed 07/08/2017 79012 Arthroscopy Wrist Excision/Repair Triang Completed Fibrocartilage/Debride 07/08/2017 30176 Arthroscopy Wrist Excision/Repair Triang Completed Fibrocartilage/Debride 06/19/2017 36756 Inject Tendon Sheath Or Ligament Aponeurosis Eg Plantar Completed Fascia 05/26/201703831 Inject/Drain Joint/Bursa Intermediate W/O US Completed 10/09/2011 53239 Rad Exam; Foot Comp Completed 10/09/2011 64455 Rad Exam; Ankle Limited Completed Encounters Type Date Location Provider Dx Diagnosis Office Visit 11/25/2018 Orthopedic Alli Luciano M19.231 Secondary 9:00a [facility] osteoarthritis, right wrist Office Visit 11/13/2018 Orthopedic Dolores Monique, M17.11 Unilateral primary 2:30p [facility] Ritter osteoarthritis, right knee M25.561 Pain in right knee M25.461 Effusion, right knee Office Visit 09/24/2018 Orthopedic Minda Ly M17.11 Unilateral primary 10:15a Services Of MD hilary C.M.A. right knee Office Visit 09/16/2018 Orthopedic Catina M19.231 Secondary 10:45a Services Of Stone Ribeiro osteoarthritis, C.M.A. right wrist Office Visit 08/27/2018 Orthopedic Minda Ly, M25.561 Pain in right knee 9:45a Services Of MD Perez M17.11 Unilateral primary osteoarthritis, right knee Office Visit 08/26/2018 Orthopedic Yessenia M19.231 Secondary 2:00p Services Of Cindi, RPA-C osteoarthritis, C.M.A. right wrist Office Visit [...] wrist, subsequent encounter Office Visit 08/20/2017 9:45a Roslyn Casas S63.511D Sprain of carpal Services Of Bitting, [...] knee Office Visit 04/09/2017 9:00a Orthopedic Yessenia Puente, M25.531 Pain in Services Of C.M.A. RPA-C right wrist M25.532 Pain in left wrist Office Visit 02/26/2017 9:00a Orthopedic Yessenia Puente M25.531 Pain in Services Of C.M.A. RPA-C right wrist M25.532 Pain in left wrist Office Visit 10/09/2011 1:00p Orthopedic Alli 355.8 Mononeuritis Lower Services Of Stone Magana Limb Unspec C.M.A. Plan of Treatment Future Appointment(s):12/21/2018 9:30 am - YOSI Krishna at [facility]12/21/2018 9:30 am - Dolores Monique M.D. at [facility]12/11/2018 1:00 pm - Dolores Monique M.D. at [facility]11/25/2018 - Alli Luciano, MDM19.231 Secondary osteoarthritis, right wristFollow up:Follow up: will call
[2018-12-21] MEDS ORDERED: Dexamethasone IV* 4 MG/ML 1 ML (4 MG) ONE (06:10)
[2018-12-21] MEDS ORDERED: celeCOXIB CAP* 100 MG ONE (06:11)
[2018-12-21] MEDS ORDERED: Famotidine TAB* 20 MG ONE (06:11)
[2018-12-21] MEDS ORDERED: Acetaminophen TAB* 325 MG ONE (06:11)
[2018-12-21] MEDS ORDERED: ceFAZolin 2 GM PREMIX in ORs 2 GM/50 ML BAG IVPB ONE (06:11)
[2018-12-21] MEDS ORDERED: Gabapentin CAP(*) 300 MG ONE (06:11)
[2018-12-21] MEDS: Acetaminophen TAB* 325 MG PO ONE ×2 (06:32→06:35)
[2018-12-21] MEDS: celeCOXIB CAP* 200 MG PO ONE ×2 (06:32→13:06)
[2018-12-21] MEDS: Dexamethasone IV* 4 MG/ML 1 ML (4 MG) IV SLOW PU ONE ×2 (06:32→06:35)
[2018-12-21] MEDS: Gabapentin CAP(*) 300 MG PO ONE ×2 (06:32→06:35)
[2018-12-21] MEDS: Famotidine TAB* 20 MG PO ONE ×2 (06:33→06:35)
[2018-12-21] MEDS ORDERED: ROPIVACAINE 5 MG/ML 30 ML BTL (0.5%) ONE ×2 (07:19→07:36)
[2018-12-21] MEDS ORDERED: Lidocaine 1%* 5 ML VIAL ONE (07:19)
[2018-12-21] MEDS ORDERED: Midazolam* 1 MG/ML 2 ML VIAL (2 MG) ONE (07:21)
[2018-12-21] MEDS ORDERED: fentaNYL* 50 MCG/ML 2 ML VIAL (100 MCG VIAL) ONE (07:42)
[2018-12-21] MEDS ORDERED: Propofol* 10 MG/ML 20 ML BTL ONE ×2 (07:42→09:28)
[2018-12-21] MEDS ORDERED: HYDROmorphone INJ1* 1 MG/ML SYRINGE IV PRN (08:06)
[2018-12-21] MEDS ORDERED: Acetaminophen IV 1GM/100ML * 1,000 MG/100 ML VIAL IVPB ONE (08:06)
[2018-12-21] MEDS ORDERED: Naloxone* 0.4 MG/ML 1 ML VIAL IV PRN (08:06)
[2018-12-21] MEDS ORDERED: oxyCODONE TAB* 5 MG TAB PO PRN (08:06)
[2018-12-21] MEDS ORDERED: fentaNYL* 50 MCG/ML 2 ML VIAL (100 MCG VIAL) IV PRN (08:06)
[2018-12-21] MEDS ORDERED: Ondansetron INJ* 2 MG/ML VIAL IV PRN ×2 (08:06→10:36)
[2018-12-21] MEDS ORDERED: Ketorolac INJ* 30 MG/ML 1 ML VIAL IV PRN (08:06)
[2018-12-21] MEDS ORDERED: KETAMINE HCL* 50 MG/ML 10 ML VIAL ONE (08:13)
[2018-12-21] MEDS ORDERED: diPHENhydraMINE IV* 50 MG/ML 1 ml VIAL (BENADRYL) IV PRN (10:36)
[2018-12-21] MEDS ORDERED: Cyclobenzaprine TAB* 10 MG PO PRN (10:36)
[2018-12-21] MEDS ORDERED: Polyethylene Glycol 3350* 17 GM PACKET PO PRN (10:36)
[2018-12-21] MEDS ORDERED: Magnesium Hydroxide LIQ* 30 ML UDC PO PRN (10:36)
[2018-12-21] MEDS ORDERED: Ondansetron TAB* 4 MG PO PRN (10:36)
[2018-12-21] MEDS ORDERED: Morphine INJ* 2 MG/ML 1 ML SYRINGE (TWO MG - NEW SYRINGE VERSION) IV PRN (10:36)
[2018-12-21] MEDS ORDERED: Bisacodyl SUPP* 10 MG SUPP PR PRN (10:36)
[2018-12-21] MEDS ORDERED: oxyCODONE/Acetamin 5/325 MG* TAB PO PRN (10:36)
[2018-12-21] MEDS ORDERED: ALPRAZolam TAB* 0.25 MG PO PRN (10:40)
[2018-12-21] MEDS ORDERED: traMADol TAB* 50 MG ONE (11:41)
[2018-12-21] MEDS ORDERED: Acetaminophen IV 1GM/100ML * 100 ML ONE (11:41)
[2018-12-21] MEDS: traMADol TAB* 50 MG PO PRN (11:42)
[2018-12-21] MEDS: Lactated Ringers 1000 ML Bag* 1,000 ML IV SCH (12:23)
[2018-12-21] MEDS: oxyCODONE TAB* 5 MG TAB PO PRN ×3 (13:00→22:19)
--- NOTE | 2018-12-21 15:37 | PN ---
Progress Note - Progress Note Date of Service: 12/21/18 Note: resting comfortably in bed without significant pain; able to dorsi flex/plantar flex, 2+ DP pulse and intact sensation
[2018-12-21] MEDS: ceFAZolin 1 GM ADVAN(*) 1 GM in NS 0.9% 50 ML* 50 ML IVPB SCH ×2 (16:18→23:36)
--- NOTE | 2018-12-21 18:18 | OP ---
DATE OF OPERATION: 12/21/18 - ROOM #342 DATE OF : 46 SURGEON: Dolores Monique MD AIR SAW OPERATOR: YOSI Velazquez ANESTHESIOLOGIST: Dr. Vinson. ANESTHESIA: Spinal. PRE-OP DIAGNOSIS: Severe end-stage arthritis of the medial compartment of the right knee. POST-OP DIAGNOSIS: Severe end-stage arthritis of the medial compartment of the right knee. OPERATIVE PROCEDURE: Right knee medial unicompartmental arthroplasty. INDICATIONS: Mr. Alexis is a 68-year-old gentleman with isolated medial compartmental arthritis of the right knee. The patient reported only medial joint line symptoms and radiograph showed advanced zwil-jz-fdug contact in the medial compartment. He elected to undergo medial unicompartmental arthroplasty of the right knee. Risks and benefits were explained to him. He understood the risks of surgery included but were not limited to bleeding, infection, damage to nearby structures, continued pain, need for further surgery, intraoperative fracture, nerve palsy, hardware failure or loosening, knee stiffness, loss of motion, need for revision to a total knee arthroplasty, stroke, heart attack, blood clot, , and anesthesia complications. He wished to proceed. The patient wished to have NAVIO Robotic surgery. He understood the increased risk of pin site fracture and infection. He wished to proceed with robotic surgery. TOURNIQUET TIME: 81 minutes. COMPLICATIONS: None. EBL: 100 cc. SPECIMENS: Right knee bone and cartilage sent to Pathology. HARDWARE USED: This is the Lexx ZUK unicompartmental knee system; for the knee, a High-Flex precoated size E right medial femoral component; for the tibia , a size 3 right tibial component; for the insert, a size 3, 8-mm Lexx unicompartmental articular surface insert; for the cement, 1 package of Simplex bone cement. INTRAOPERATIVE FINDINGS: Intraoperatively, the patient was noted to have advanced arthritis in the medial compartment. His patellofemoral and lateral compartment had very minimal arthritic changes. DESCRIPTION OF PROCEDURE: Mr. Alexis was identified in the preanesthesia unit. His right lower extremity was marked as the correct operative side. Informed consent was signed and placed in the chart. The patient was taken to the operating room and placed under anesthesia. A Li catheter was placed. Tourniquet was placed on the right thigh. Right lower extremity was prepped and draped in the usual sterile fashion. Preop time-out was made to correctly identify the patient's side and site. Appropriate preoperative antibiotics were given within 1 hour of incision. Tourniquet was inflated and total tourniquet time for this procedure was 81 minutes. A medialized midline incision was made from the tibial tubercle to the top of the patella. This was carried down to the extensor mechanism. New # 10 blade was used to make a medial parapatellar arthrotomy and the patella was subluxed laterally. The electrocautery was used to subperiosteally elevate soft tissue off the superomedial tibia to mid sagittal plane. Any medial osteophytes were removed with the rongeur from the medial tibial plateau and medial femoral condyle. The patellofemoral and lateral compartments were inspected and had minimal arthritic changes. ACL and PCL were intact. Decision was made to proceed with the robotic medial unicompartmental arthroplasty. Two 4-mm pins were placed in the midshaft of the tibia, two 4-mm pins were placed in the midshaft of the femoral bone without complication. The arrays were locked into position on these 2 pins, femoral arrays and tibial arrays were placed without difficulty. The knee was taken through the proper range of motion and checked points using a [employer]It robotic system. The femur and tibia were carefully mapped. The femur was sized to a size E and the tibia was sized to a size 3. Intraoperative planning was carried out without difficulty. The robotic bur was used to remove the appropriate amount of femoral bone for the femoral component. Femoral trial was impacted into position and had excellent fit. Any overhanging cartilage was carefully removed. Next, the robotic bur was used to remove the appropriate amount of proximal and medial tibial plateau bone. The tibial trial was carefully pinned into position. A size 3, 8-mm articular insert trial was placed and the knee was taken through range of motion. The knee had full extension to 135 degrees of flexion with good patellofemoral tracking. The femoral and insert trial were removed. Drill was used to drill the appropriate 2 tibial pegs. Any remaining medial meniscus was carefully removed with electrocautery. Simplex cement was used to cement the final implants into place starting with the tibial followed by the femur. An 8-mm insert trial was placed and the knee was brought into full extension. Tourniquet was turned down. The cement was allowed to fully cure. Insert trial was removed. Any excess cement was carefully removed from around the implants. Final insert chosen was size 3, 8- mm Lexx articular surface insert. This was locked into position on the tibial tray. Stability of the insert was checked and rechecked and noted to be stable. The knee was taken through range of motion. The knee had full extension to 135 degrees of flexion with satisfactory patellofemoral tracking. There was good medial and lateral ligamentous balancing. The knee was copiously irrigated with sterile saline. The extensor mechanism was closed using interrupted #1 Vicryls. The rest of the incision was closed in a layered fashion using 0 and 2-0 Vicryls. The skin was closed using running 3-0 nylon suture. Pins were carefully removed. The pin sites were irrigated and closed with 3-0 nylon suture. Sterile Xeroform, 4x4s, and Webril were used to cover the incisions. The patient's anesthesia was reversed without difficulty. He was taken to the PACU in stable condition. Intended weightbearing will be weightbearing as tolerated. Intended DVT prophylaxis will be Eliquis. [id number]/[facility] #: [id number] MTDHaleigh
[2018-12-21] MEDS ORDERED: Zolpidem TAB* 10 MG PO SCH (21:00)
[2018-12-21] MEDS: Docusate CAP* 100 MG PO SCH (22:19)
[2018-12-21] MEDS: Acetaminophen TAB* 325 MG PO SCH (23:34)
[2018-12-21] MEDS: Magnesium Hydroxide LIQ* 30 ML UDC PO SCH (23:34)
[2018-12-22] MEDS: Lactated Ringers 1000 ML Bag* 1,000 ML IV SCH (02:24)
[2018-12-22] MEDS: oxyCODONE TAB* 5 MG TAB PO PRN ×3 (02:24→10:21)
[2018-12-22] MEDS: Acetaminophen TAB* 325 MG PO SCH ×2 (04:06→13:02)
[2018-12-22 05:53] LABS: Hematocrit 43 % (36-46); Hemoglobin 14.7 g/dL (14.0-18.0); Mean Platelet Volume 8.3 fL (7.4-10.4); Platelet Count 179 10^3/uL (150-450)
[2018-12-22 06:15] LABS: BUN/Creatinine Ratio 15.6 (8-20); Calcium 8.8 mg/dL (8.6-10.3); EGFR African American 93.7 (>60); EGFR Non-African American 77.4 (>60); Potassium 4.2 mmol/L (3.5-5.0)
[2018-12-22] MEDS: ceFAZolin 1 GM ADVAN(*) 1 GM in NS 0.9% 50 ML* 50 ML IVPB SCH (07:41)
[2018-12-22] MEDS ORDERED: Apixaban* 2.5 MG TAB PO SCH (09:00)
--- NOTE | 2018-12-22 09:11 | PN ---
Progress Note - Progress Note Date of Service: 12/22/18 SOAP: Subjective: []Pt seen at bedside. He feels well with 3/10 pain. Denies CP, SOB, dizziness, nausea. Wants to DC home today Objective: []General: Appears well, NAD RLE: Right knee dressing CDI, thigh soft, DF/PF intact, DP2+, sensation intact to light touch distally Calves supple and nontender without erythema, edema or palpable cords Assessment: []Right knee medial compartment arthroplasty Plan: []WBAT PT/OT Eliquis 2.5 mg po BID x 30 days Will change dressing before DC Work with PT before DC Vital Signs Temp 97.4 F 12/22/18 07:45 Pulse 59 12/22/18 07:45 Resp 17 12/22/18 07:45 BP 128/81 12/22/18 07:45 Pulse Ox 97 12/22/18 07:45 Intake & Output 12/21/18 12/22/18 12/22/18 18:59 06:59 18:59 Intake Total 2170 1555 Output Total 1600 1350 Balance 570 205 Intake: IV Fluids 1700 55 ABX - CEFAZOLIN 55 NS 50ML, Cefazolin 2G 50 TXA 1GM IN 50ML NS 50 lr 1600 Oral 470 1500 Output: Li 1450 1350 Estimated Blood Loss 150 Other: # Bowel Movements 0 Laboratory Last Values Hgb 14.7 g/dL (14.0-18.0) 12/22/18 05:24 Hct 43 % (36-46) 12/22/18 05:24 Plt Count 179 10^3/uL (150-450) 12/22/18 05:24 MPV 8.3 fL (7.4-10.4) 12/22/18 05:24 Sodium 139 mmol/L (135-145) 12/22/18 05:24 Potassium 4.2 mmol/L (3.5-5.0) 12/22/18 05:24 Chloride 106 mmol/L (101-111) 12/22/18 05:24 Carbon Dioxide 24 mmol/L (22-32) 12/22/18 05:24 Anion Gap 9 mmol/L (2-11) 12/22/18 05:24 BUN 15 mg/dL (6-24) 12/22/18 05:24 Creatinine 0.96 mg/dL (0.67-1.17) 12/22/18 05:24 Est GFR ( Amer) 93.7 (>60) 12/22/18 05:24 Est GFR (Non-Af Amer) 77.4 (>60) 12/22/18 05:24 BUN/Creatinine Ratio 15.6 (8-20) 12/22/18 05:24 Glucose 109 mg/dL (70-100) H 12/22/18 05:24 Calcium 8.8 mg/dL (8.6-10.3) 12/22/18 05:24
[2018-12-22] MEDS: Docusate CAP* 100 MG PO SCH (09:14)
[2018-12-22] MEDS: Magnesium Hydroxide LIQ* 30 ML UDC PO SCH (09:14)
--- NOTE | 2018-12-22 09:21 | DS ---
Orthopedic Discharge Summary - Discharge Summary Discharge to home in stable condition 12/22/18 with VNS Date of Admission:12/21/18 Date of Discharge: [12/22/18] Date of Surgery: [12/21/18] Attending Orthopedic Provider: [Dr Monique] Pre-operative Diagnosis: [right knee osteoarthritis ] Operative Procedure: [Right medial knee replacement] Condition of Patient: [stable] History: RADHIKA ABERNATHY is a 68 year old M with years of increasingly severe [right knee] pain. Patient has failed conservative management and has elected to undergo a [right medial knee replacement Hospital Course: RADHIKA was admitted to [facility] on 12/21/18. Patient underwent a [right medial knee replacement] without complication followed by a brief recovery in PACU and transfer to the Short Stay Surgical Unit in stable condition. Our hospitalist service, physical therapy and occupational therapy also participated in this patients care. Post-op day 1: patient was alert and in no acute distress. Dressing was changed, incision clean , dry and intact. Operative extremity dorsiflexion and plantarflexion intact, sensation intact to light touch distally, DP2+. Physical therapy goals were met. Patient is medically and orthopedically stable for discharge to home. Home Medications Medication Instructions Recorded Confirmed Type ALPRAZolam [Xanax] 0.25 mg PO BID PRN 07/03/17 12/11/18 History Zolpidem TAB* [Ambien*] 10 mg PO BEDTIME 07/03/17 12/11/18 History Flaxseed Oil 1 cap PO QAM 09/30/17 12/11/18 History Acetaminophen TAB* [Tylenol TAB*] 975 mg PO Q8H tab 12/22/18 Rx Apixaban* [Eliquis*] 2.5 mg PO BID #60 tab 12/22/18 Rx Docusate CAP* [Colace Cap*] 100 mg PO BID #90 cap 12/22/18 Rx oxyCODONE/Acetamin 5/325 MG* 2 tab PO Q4H PRN #70 tab MDD 10 12/22/18 Rx [Percocet 5/325 TAB*] Discharge Instructions following Orthopedic Surgery: Activity: * Weight Bearing as tolerated * Continue physical therapy and occupational therapy exercises as shown * PT at home Wound care: * OK to shower on post-op day 3, no bathing, swimming, or submerging wound. * Use gentle soap, pat dry. Cover with gauze, RAGHU wrap or tape. * Visiting home nurse to do wound checks. Call Orthopedic office for: * Increased drainage * Redness * Increased pain * Fever Go to ER with shortness of breath or chest pain. Diet: * Regular diet * Increase fluids and fiber to prevent constipation. * Continue to use stool softeners, call office if no bowel motion within 48 hours. Medications See Home Medication List in your packet for medications that you should take after discharge. DVT Prophylaxis: Eliquis Dosin.5 mg, 1 tab every 12 hours x 30 days. This medication increases bleeding tendency Pain Control: Percocet Dosin/325 mg 1-2 tabs by mouth every 4-6 hours as needed for pain. Maximum of 10 tabs per day. Hold for sedation. Wean off as soon as pain allows Please note that Percocet contains Tylenol (acetaminophen). Maximum daily dose of Tylenol is 4000 mg from all sources. Antibiotics are required prior to any dental work. FOLLOW UP: Follow up with Dr. Bowen Within 10-14 days, call for appointment Please call our office with any questions or concerns ([phone]) RX to [facility] [place]
[2018-12-22] MEDS: traMADol TAB* 50 MG PO PRN (12:39)
[2018-12-22] MEDS: oxyCODONE/Acetamin 5/325 MG* TAB PO PRN ×2 (13:41→18:00)
[2018-12-22 14:11] VITALS: BP 101/82
== END 2018-12-22 18:10 | disposition home or self-care (01) ==
LOC: INTOOBSV 05:29 → AA 05:29 → SSU 10:36
PROVIDERS: ADMIT Orthopaedic Surgery Adult Reconstructive Orthopaedic Surgery; ATTEND Orthopaedic Surgery Adult Reconstructive Orthopaedic Surgery
DX: M17.11 Unilateral primary osteoarthritis, right knee (principal); M25.561 Pain in right knee; Z88.0 Allergy status to penicillin
CPT/HCPCS: 36415; 80048; 85014; 85018; 85049; 88304; 96374; 96375; A9270-GY; G0378; G8978-GP-CJ; G8979-GP-CI; J0690; J1100; J2250; J2704; J2795; J3010

== ENCOUNTER 2019-02-08 16:10 | Inpatient (IN) | payer MEDICARE, BC ==
[2019-02-08] MEDS ORDERED: Morphine 4 MG/ML VIAL (1 ml) 4 MG/ML VIAL IV ONE ×2 (16:32→19:36)
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
[2019-02-08 17:07] LABS: ABS Eosinophils 0.1 10^3/ul (0-0.6); ABS Lymphocytes 1.2 10^3/ul (1.0-4.8); ABS Monocytes 0.9 10^3/ul (0-0.8); ABS Neutrophils 8.7 10^3/ul (1.5-7.7); Eosinophil % 1.1 %; Hematocrit 48 % (42-52); Hemoglobin 16.6 g/dL (14.0-18.0); Lymphocyte % 11.1 %; Mean Corpuscular HGB Conc 34 g/dL (31-36); Mean Corpuscular Hemoglobin 31 pg (27-31); Mean Corpuscular Volume 89 fL (80-94); Nucleated Red Blood Cells % 0.1; Platelet Count 242 10^3/uL (150-450); Red Blood Count 5.44 10^6 /uL (4.18-5.48); Red Cell Distribution Width 13 % (10-15)
--- OUTSIDE RECORDS SUMMARY | 2019-02-08 17:07 | XMS REPORT | Continuity of Care Document ---
:1950 External Reference #:[id number] Author Name Pinky Cervantes Care Team Providers Name Role Phone Zack Mott MD Primary Care Physician Unavailable Payers Date Identification Numbers Payment Provider Subscriber Effective: 2019 Policy Number: [id number] Medicare Cortez Alexis PayID: [id number] [address] [place] [address] Expires: 2019 Policy Number: [id number] Medicare Cortez Alexis PayID: [id number] [address] [place] [address] Expires: 2017 Policy Number: [id number] Medicare Cortez Alexis PayID: [id number] [address] [place] [address] Policy Number: [id number] [facility] Cortez Alexis PayID: [id number] [address] [place] [address] Problems Active Problems Provider Date Mononeuritis of lower limb Alli Magana M.D. Onset: 08/09/2013 Arthroplasty of knee Dolores Monique M.D. 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 en every 4-6 hours 5-325mg Tablets as needed for pain History Medications Indomethacin ER 1 by mouth three 60caps S63.511D Catina 11/26/2017 - times a day as Stone Ribeiro 09/15/2018 75mg Capsules ER needed swelling or pain Tramadol take one tablet by 30tabs Catina 10/03/2017 - Hydrochloride/Aceta mouth every 4-5 Stone Ribeiro 08/25/2018 minophen hours as needed for 37.5-325mg pain. Tablets [place] Take 1-2 tablets 20tabs Catina 07/02/2017 - 5-325mg every 4-6 hours as Stone Ribeiro 10/21/2016 Tablets needed for pain. Medrol take as directed 1pak Catina 02/26/2017 - 4mg TBPK per maureen Ribeiro M.D. 05/24/2017 instructions Trazodone HCL Unknown - 06/09/2018 Zolpidem Tartrate Unknown - 09/15/2018 Medications Administered in Office Medication SIG Qnty Indications Ordering Provider Date Celestone 3 mg and 3mg Alli Luciano MD 02/02/2019 Injection Depomedrol 40MG Catina Ribeiro M.D. 07/08/2018 Injection Depomedrol 40MG Catina Ribeiro M.D. 06/10/2018 Injection Depomedrol 40MG Catina Ribeiro M.D. 03/19/2018 Injection Depomedrol 40MG Catina Ribeiro M.D. 09/01/2017 Injection Depomedrol 40MG Catina Ribeiro M.D. 06/19/2017 Injection Depomedrol 40MG Catina Ribeiro M.D. 05/26/2017 Injection Vital Signs Date Vital Result Comment 02/03/2019 3:57pm Height 71 inches 5'11" Weight 175.00 lb Heart Rate 66 /min BP Systolic 138 mmHg BP Diastolic 82 mmHg Respiratory Rate 14 /min Pain Level 1 BMI (Body Mass Index) 24.4 kg/m2 02/02/2019 9:32am Height 71 inches 5'11" Heart Rate 78 /min BP Systolic 130 mmHg BP Diastolic 80 mmHg Respiratory Rate 18 /min Body Temperature 98.2 F Pain Level 4 01/06/2019 11:01am Height 71 inches 5'11" Weight 180.00 lb BP Systolic 140 mmHg BP Diastolic 82 mmHg Body Temperature 97.8 F Pain Level 3 BMI (Body Mass Index) 25.1 kg/m2 01/01/2019 10:20am Height 70 inches 5'10" Heart Rate 68 /min BP Systolic 140 mmHg BP Diastolic 88 mmHg Respiratory Rate 18 /min Body Temperature 97.7 F Pain Level 3 12/15/2018 1:38pm Height 70 inches 5'10" Weight [...] H/L Range Note CBC Auto Diff 12/11/2018 [facility] White Blood 8.3 10^3/uL N 3.5-10.[address] [place] [address] [phone] Red Blood Count 5.20 10^6/uL N 4.18-5.48 [...] Cells % 0.1 Comp Metabolic Panel 12/11/2018 [facility] Sodium 141 mmol/L N 135-[address] [place] [address] [phone] Potassium 4.1 mmol/L N 3.5-5.0 Chloride 105 [...] >60 Egfr 96.0 >60 1 Inr/Protime 12/11/2018 [facility] Inr 0.87 N 0.77-1.[address] [place] [address] [phone] Laboratory test 12/11/2018 [facility] Partial 31.7 seconds N 26.0-36.[address] [place] [address] PTT [phone] Urinalysis 12/11/2018 [facility] Urine Color Yellow Profile [address] [place] [address] [phone] Urine Appearance Clear Urine Specific [place] 1.013 N 1.010-1.030 Urine pH 6.0 N 5-9 Urine Urobilinogen Negative Negative Urine Ketones Negative Negative Urine Protein Negative Negative Urine Leukocytes Negative Negative Urine Blood 1+ Abnormal Negative Urine Nitrite Negative Negative Urine Bilirubin Negative Negative Urine Glucose Negative Negative Urine White Blood Cell Absent Absent Urine Red Blood Cell 1+(3-5/hpf) Abnormal Absent Urine Bacteria Absent Absent Type & Screen 12/11/2018 [facility] Patient Blood Type AB Negative [address] [place] [address] [phone] Antibody Screen NEGATIVE Urine Culture And 12/11/2018 [facility] Urine Culture SEE RESULT [address] [place] [address] [phone] 1 Because ethnic data is not always [...] [address]: Dolores Monique MD Acct: [id number] Unit: [id number] AGE: 68 Location: [facility] Re12/11/18 SEX: M Status: REG REF SPEC: [id number] YUNG: 12/11/18-1639 [facility] DR: Dolores Monique MD REQ: [id number] RECD: 12/11/18 STATUS: JARRET HORN DR: Zack Mott MD _ SOURCE: URINE SPDESC: ORDERED: Urine Culture QUERIES: Urine Source: Clean Catch Procedure Result Reported Site Urine Culture Final 12/12/18- 1604 ML No Growth (<1,000 CFU/mL) * ML - Main Lab . END OF REPORT DEPARTMENT OF PATHOLOGY, [address] [place] [address] Talon Davis M.D. Director [facility] # [id number] Procedures Date Code Description Status 12/21/2018 73870 Arthroplasty Knee Condyle & Plateau Med Or Lat Compartment Completed 12/21/2018 77881 Arthroplasty Knee Condyle & Plateau Med Or Lat Compartment Completed 12/11/2018 01302 EKG, Interpretation Only Completed 07/08/2018 Inject/Drain Joint/Bursa Intermediate W/O US Completed 06/10/201817861 Inject Tendon Sheath Or Ligament Aponeurosis Eg Plantar Completed Fascia 03/19/2018 Inject/Drain Joint/Bursa Intermediate W/O US Completed 10/10/2017 15508 Holter Monitor Review (24 hr)dr review & interp only Completed 10/08/2017 62726 ECG Monitor/Recording W/Visual Superimposition Scanning Completed 10/03/201792427 Carpal Tunnel Release Completed 10/03/2017 Carpal Tunnel Release Completed 09/01/2017 63436 Injection, Carpal Tunnel Completed 07/08/2017 39182 Arthroscopy Wrist Excision/Repair Triang Completed Fibrocartilage/Debride 07/08/2017 74848 Arthroscopy Wrist Excision/Repair Triang Completed Fibrocartilage/Debride 06/19/201708281 Inject Tendon Sheath Or Ligament Aponeurosis Eg Plantar Completed Fascia 05/26/201720715 Inject/Drain Joint/Bursa Intermediate W/O US Completed 10/09/2011 02766 Rad Exam; Foot Comp Completed 10/09/2011 87479 Rad Exam; Ankle Limited Completed Encounters Type Date Location Provider Dx Diagnosis Office Visit 12/15/2018 [facility]opedic Alli Luciano M18.12 Unil primary 1:30p [facility] osteoarth of first carpometacarp joint, l hand G56.02 Carpal tunnel syndrome, left upper limb Office Visit 11/25/2018 [facility]opedic Alli M19.231 Secondary 9:00a [facility] hilary Luciano, C.M.A. right wrist Office Visit 11/13/2018 Orthopedic Dolores Monique M17.11 Unilateral primary 2:30p [facility] osteoarthritis, C.M.A. right knee M25.561 Pain in right knee M25.461 Effusion, right knee Office Visit 09/24/2018 Orthopedic Minda Ly M17.11 Unilateral primary 10:15a [facility] richard C.M.AJoel right knee Office Visit 09/16/2018 Orthopedic Catina M19.231 Secondary 10:45a [facility] Ribeiro osteoarthritis, C.M.AJoel right wrist Office Visit 08/27/2018 Orthopedic Minda [...] syndrome, left upper limb Office Visit 07/02/2017 Roslyn Dominique S63.511D Sprain of carpal 8:45a Services [facility] [...] wrist Office Visit 02/26/2017 9:00a Orthopedic Yessenia Bitting, M25.531 Pain in [facility] RPA-C right wrist M25.532 Pain in left wrist Office Visit 10/09/2011 1:00p Orthopedic Alli 355.8 Mononeuritis Lower [facility] Magana Limb Unspec [facility] Plan of Treatment Future Appointment(s):03/10/2019 9:15 am - Dolores Monique M.D. at [facility]02/03/2019 - Dolores Monique M.D.Z96.651 Presence of right artificial knee jointFollow up:Follow up: 4 mcgpzU71.1 Aftercare following joint replacement dnkndeyE11.561 Pain in right kneeM25.461 Effusion, right knee
--- OUTSIDE RECORDS SUMMARY | 2019-02-08 17:08 | XMS REPORT | Continuity of Care Document ---
:1950 External Reference #:[id number] Author Name Isabella Weaverjunaidnay Care Team Providers Name Role Phone Zack Mott MD Primary Care Physician Unavailable Payers Date Identification Numbers Payment Provider Subscriber Effective: 2019 Policy Number: [id number] Medicare Cortez Alexis PayID: [id number] [address] [place] [address] Expires: 2019 Policy Number: [id number] Medicare Cortez Alexis PayID: [id number] [address] [place] [address] Expires: 2017 Policy Number: [id number] Medicare Cortez Alexis PayID: [id number] [address] [place] [address] Policy Number: [id number] [facility] Cortez Alexis PayID: [id number] [address] [place] [address] Problems Active Problems Provider Date Mononeuritis of [...] Comments Sex Unknown Lives With Son 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 Tablets [place] Take 1-2 tablets 20tabs Catina 07/02/2017 - [...] Injection Vital Signs Date Vital Result Comment 02/02/2019 9:32am Height 71 inches 5'11" Heart [...] H/L Range Note CBC Auto Diff 12/11/2018 [facility] White Blood 8.3 10^3/uL N 3.5-10.[address] [place] [address] [phone] Red Blood Count 5.20 10^6/uL N 4.18-5.48 [...] Cells % 0.1 Comp Metabolic Panel 12/11/2018 [facility] Sodium 141 mmol/L N 135-[address] [place] [address] [phone] Potassium 4.1 mmol/L N 3.5-5.0 Chloride 105 [...] >60 Egfr 96.0 >60 1 Inr/Protime 12/11/2018 [facility] Inr 0.87 N 0.77-1.[address] [place], [place] [address] [phone] Laboratory test 12/11/2018 [facility] Partial 31.7 seconds N 26.0-36.[address] [place] [address] PTT [phone] Urinalysis 12/11/2018 [facility] Urine Color Yellow Profile [address] [place] [address] [phone] Urine Appearance Clear Urine Specific [place] 1.013 N 1.010-1.030 Urine pH 6.0 N 5-9 Urine Urobilinogen Negative Negative Urine Ketones Negative Negative Urine Protein Negative Negative Urine Leukocytes Negative Negative Urine Blood 1+ Abnormal Negative Urine Nitrite Negative Negative Urine Bilirubin Negative Negative Urine Glucose Negative Negative Urine White Blood Cell Absent Absent Urine Red Blood Cell 1+(3-5/hpf) Abnormal Absent Urine Bacteria Absent Absent Type & Screen 12/11/2018 [facility] Patient Blood Type AB Negative [address] [place] [address] [phone] Antibody Screen NEGATIVE Urine Culture And 12/11/2018 [facility] Urine Culture SEE RESULT [address] [place] [address] [phone] 1 Because ethnic data is not always [...] (or dialysis) 2 SEE RESULT BELOW Name: JOSEMANUELCORTEZ : [address]: Dolores Monique MD Acct: [id number] Unit: [id number] AGE: 68 Location: [facility] Re12/11/18 SEX: M Status: REG REF SPEC: [id number] YUNG: 12/11/18 [facility] DR: Dolores Monique MD REQ: [id number] RECD: 12/11/18 STATUS: JARRET HORN DR: Zack Mott MD _ SOURCE: URINE SPDESC: ORDERED: Urine Culture QUERIES: Urine Source: Clean Catch Procedure Result Reported Site Urine Culture Final 12/12/18- 1604 ML No Growth (<1,000 CFU/mL) * ML - Main Lab . END OF REPORT DEPARTMENT OF PATHOLOGY, [address] [place] [address] Talon Davis M.D. Director [facility] # [id number] Procedures Date Code Description Status 12/21/201829457 Arthroplasty Knee Condyle & Plateau Med Or Lat Compartment Completed 12/21/2018 Arthroplasty Knee Condyle & Plateau Med Or Lat Compartment Completed 07/08/2018 Inject/Drain Joint/Bursa Intermediate W/O US Completed 06/10/2018 87795 Inject Tendon Sheath Or Ligament Aponeurosis Eg Plantar Completed Fascia 03/19/2018 Inject/Drain Joint/Bursa Intermediate W/O US Completed 10/10/2017 71977 Holter Monitor Review (24 hr)dr review & interp only Completed 10/08/2017 96086 ECG Monitor/Recording W/Visual Superimposition Scanning Completed 10/03/2017 21833 Carpal Tunnel Release Completed 10/03/201779799 Carpal Tunnel Release Completed 09/01/2017 Injection, Carpal Tunnel Completed 07/08/201759391 Arthroscopy Wrist Excision/Repair Triang Completed Fibrocartilage/Debride 07/08/201704249 Arthroscopy Wrist Excision/Repair Triang Completed Fibrocartilage/Debride 06/19/201765761 Inject Tendon Sheath Or Ligament Aponeurosis Eg Plantar Completed Fascia 05/26/2017 Inject/Drain Joint/Bursa Intermediate W/O US Completed 10/09/2011 15860 Rad Exam; Foot Comp Completed 10/09/2011 30029 Rad Exam; Ankle Limited Completed Encounters Type Date Location Provider Dx Diagnosis Office Visit 12/15/2018 [facility] Alli Luciano, M18.12 Unil primary 1:30p [facility] osteoarth of first carpometacarp joint, l hand G56.02 Carpal tunnel syndrome, left upper limb Office Visit 11/25/2018 [facility]opedic Alli M19.231 Secondary 9:00a [facility] Ankita osteoarthritis, C.M.A. right wrist Office Visit 11/13/2018 Orthopedic Dolores Monique M17.11 Unilateral primary 2:30p [facility] osteoarthritis, C.M.A. right knee M25.561 Pain in right knee M25.461 Effusion, right knee Office Visit 09/24/2018 Orthopedic Minda Ly M17.11 Unilateral primary 10:15a Services Of osteoarthritis, C.M.AJoel right knee Office Visit 09/16/2018 Orthopedic [...] wrist Office Visit 10/09/2011 1:00p Orthopedic Alli Gomez.8 Mononeuritis Lower [facility] Magana Limb Unspec C.M.A. Plan of Treatment Future Appointment(s):02/03/2019 3:30 pm - Dolores Monique M.D. at [facility]
[2019-02-08 17:18] LABS: INR 0.93 (0.82-1.09)
[2019-02-08 17:24] LABS: Troponin I 0.01 ng/mL (<0.04)
[2019-02-08 17:29] LABS: Albumin 4.5 g/dL (3.2-5.2); Albumin/Globulin Ratio 1.7 (1-3); BUN/Creatinine Ratio 19.1 (8-20); Calcium 9.5 mg/dL (8.6-10.3); EGFR African American 80.1 (>60); EGFR Non-African American 66.2 (>60); Globulin 2.6 g/dL (2-4); Potassium 4.1 mmol/L (3.5-5.0); Total Protein 7.1 g/dL (6.4-8.9)
[2019-02-08] MEDS ORDERED: Acetaminophen TAB* 325 MG PO PRN (20:39)
[2019-02-08] MEDS ORDERED: Heparin VIAL(*) 5000 UNITS/ML VIAL (FIVE THOUSAND) SUBCUT ONE (20:43)
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
[2019-02-08] MEDS: Morphine INJ* 2 MG/ML 1 ML SYRINGE (TWO MG - NEW SYRINGE VERSION) IV PRN (22:41)
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
[2019-02-09] MEDS: Morphine INJ* 2 MG/ML 1 ML SYRINGE (TWO MG - NEW SYRINGE VERSION) IV PRN ×5 (02:20→23:25)
[2019-02-09 05:48] LABS: ABS Eosinophils 0.2 10^3/ul (0-0.6); ABS Lymphocytes 1.6 10^3/ul (1.0-4.8); ABS Monocytes 0.9 10^3/ul (0-0.8); ABS Neutrophils 6.1 10^3/ul (1.5-7.7); Eosinophil % 2.5 %; Hematocrit 44 % (42-52); Lymphocyte % 18.2 %; Mean Corpuscular HGB Conc 34 g/dL (31-36); Mean Corpuscular Hemoglobin 30 pg (27-31); Mean Corpuscular Volume 89 fL (80-94); Platelet Count 207 10^3/uL (150-450); Red Blood Count 4.97 10^6 /uL (4.18-5.48); Red Cell Distribution Width 13 % (10-15); White Blood Count 8.9 10^3/uL (3.5-10.8)
[2019-02-09] MEDS: Ondansetron INJ* 2 MG/ML VIAL IV PRN ×2 (08:31→23:34)
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
[2019-02-09] MEDS: oxyCODONE/Acetamin 5/325 MG* TAB PO PRN ×3 (09:40→22:39)
[2019-02-09] MEDS: oxyCODONE TAB* 5 MG TAB PO PRN ×3 (09:41→22:40)
[2019-02-09] MEDS ORDERED: Clindamycin 900 MG IVPREMIX(* 900 MG/50 ML SDV IV ONE (16:14)
[2019-02-09] MEDS ORDERED: Bupivacaine 0.5% W/EPI SDV* 30 ML VIAL ONE (16:48)
[2019-02-09] MEDS ORDERED: fentaNYL* 50 MCG/ML 2 ML VIAL (100 MCG VIAL) ONE (17:10)
[2019-02-09] MEDS ORDERED: KETAMINE HCL* 50 MG/ML 10 ML VIAL ONE (17:11)
[2019-02-09] MEDS ORDERED: Midazolam* 1 MG/ML 5 ML VIAL (5 MG) ONE (17:11)
[2019-02-09] MEDS ORDERED: Bupivacaine 0.5%* 50 ML VIAL ONE (17:13)
[2019-02-09] MEDS ORDERED: Bupivacaine 0.5% SDV PF* 30ML VIAL ONE (17:14)
[2019-02-09] MEDS ORDERED: Midazolam* 1 MG/ML 2 ML VIAL (2 MG) ONE ×2 (18:17→18:51)
[2019-02-09] MEDS ORDERED: Naloxone* 0.4 MG/ML 1 ML VIAL IV PRN (20:23)
[2019-02-09] MEDS ORDERED: oxyCODONE/Acetamin 5/325 MG* TAB PO PRN (20:23)
[2019-02-09] MEDS ORDERED: fentaNYL* 50 MCG/ML 2 ML VIAL (100 MCG VIAL) IV PRN (20:23)
[2019-02-09] MEDS ORDERED: Ketorolac INJ* 30 MG/ML 1 ML VIAL IV PRN (20:23)
[2019-02-09] MEDS ORDERED: HYDROcodone/ACETAMIN 5-325 MG* 1 TAB PO PRN (20:23)
[2019-02-09] MEDS ORDERED: Ondansetron INJ* 2 MG/ML VIAL IV PRN (20:23)
[2019-02-09] MEDS: Lactated Ringers 1000 ML Bag* 1,000 ML IV SCH (22:09)
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
[2019-02-10] MEDS ORDERED: LORazepam INJ* 2 MG/ML 1 ML VIAL IV PUSH PRN (00:42)
[2019-02-10] MEDS ORDERED: Lorazepam PYXIS KEY PRN (00:42)
[2019-02-10] MEDS: Clindamycin 600 MG IVPREMIX(* 600 MG/50 ML SDV IV SCH ×3 (01:49→18:28)
[2019-02-10] MEDS: oxyCODONE TAB* 5 MG TAB PO PRN ×5 (03:43→23:10)
[2019-02-10] MEDS: oxyCODONE/Acetamin 5/325 MG* TAB PO PRN ×5 (03:43→23:10)
[2019-02-10] MEDS: Apixaban* 2.5 MG TAB PO SCH ×2 (08:34→21:33)
[2019-02-10] MEDS: Lactated Ringers 1000 ML Bag* 1,000 ML IV SCH (08:41)
--- NOTE | 2019-02-10 13:06 | PN ---
Progress Note - Progress Note Date of Service: 02/10/19 SOAP: Subjective: [] Patient seen and examined at bedside. HE is feeling well, hip pain is well controlled. Denies CP, SOB, dizziness, nausea. Objective: []General: Appears well, NAD RLE: Dressing CDI, thigh soft, DF/PF intact, sensation intact to light touch distally, DP2+, capillary refill less than two seconds distally Calves supple and nontender without erythema, edema or palpable cords Assessment: [ R IT fracture POD 1 sp long gamma nail Plan: []WBAT PT/OT eliquis 2.5 mg po BID x 30 days post op PMRU referral in Vital Signs Temp 99.6 F 02/10/19 11:30 Pulse 65 02/10/19 11:30 Resp 12 02/10/19 11:30 BP 124/66 02/10/19 11:30 Pulse Ox 95 02/10/19 11:30 Intake & Output 02/09/19 02/10/19 02/10/19 18:59 06:59 18:59 Intake Total 0 2760 1020 Output Total 200 1180 200 Balance -200 1580 820 Intake: IV Fluids 1800 1020 ABX - CLINDAMYCIN 30 D5W LR 990 LR 1800 Oral 0 960 Output: Urine 200 0 200 Li 930 Estimated Blood Loss 250 Other: # Bowel Movements 0 0 Laboratory Last Values WBC 8.9 10^3/uL (3.5-10.8) 02/09/19 05:24 RBC 4.97 10^6 /uL (4.18-5.48) 02/09/19 05:24 Hgb 15.0 g/dL (14.0-18.0) 02/09/19 05:24 Hct 44 % (42-52) 02/09/19 05:24 MCV 89 fL (80-94) 02/09/19 05:24 MCH 30 pg (27-31) 02/09/19 05:24 MCHC 34 g/dL (31-36) 02/09/19 05:24 RDW 13 % (10-15) 02/09/19 05:24 Plt Count 207 10^3/uL (150-450) 02/09/19 05:24 MPV 7.0 fL (7.4-10.4) L 02/09/19 05:24 Neut % (Auto) 68.7 % 02/09/19 05:24 Lymph % (Auto) 18.2 % 02/09/19 05:24 Bulloch % (Auto) 10.3 % 02/09/19 05:24 Eos % (Auto) 2.5 % 02/09/19 05:24 Baso % (Auto) 0.3 % 02/09/19 05:24 Absolute Neuts (auto) 6.1 10^3/ul (1.5-7.7) 02/09/19 05:24 Absolute Lymphs (auto) 1.6 10^3/ul (1.0-4.8) 02/09/19 05:24 Absolute Monos (auto) 0.9 10^3/ul (0-0.8) H 02/09/19 05:24 Absolute Eos (auto) 0.2 10^3/ul (0-0.6) 02/09/19 05:24 Absolute Basos (auto) 0.0 10^3/ul (0-0.2) 02/09/19 05:24 Absolute Nucleated RBC 0.0 10^3/ul 02/09/19 05:24 Nucleated RBC % 0.0 02/09/19 05:24 INR (Anticoag Therapy) 0.93 (0.82-1.09) 02/08/19 16:59 APTT 31.0 seconds (26.0-38.0) 02/08/19 16:59 Sodium 137 mmol/L (135-145) 02/08/19 16:59 Potassium 4.1 mmol/L (3.5-5.0) 02/08/19 16:59 Chloride 101 mmol/L (101-111) 02/08/19 16:59 Carbon Dioxide 26 mmol/L (22-32) 02/08/19 16:59 Anion Gap 10 mmol/L (2-11) 02/08/19 16:59 BUN 21 mg/dL (6-24) 02/08/19 16:59 Creatinine 1.10 mg/dL (0.67-1.17) 02/08/19 16:59 Est GFR ( Amer) 80.1 (>60) 02/08/19 16:59 Est GFR (Non-Af Amer) 66.2 (>60) 02/08/19 16:59 BUN/Creatinine Ratio 19.1 (8-20) 02/08/19 16:59 Glucose 130 mg/dL (70-100) H 02/08/19 16:59 Lactic Acid 1.6 mmol/L (0.5-2.0) 02/08/19 16:59 Calcium 9.5 mg/dL (8.6-10.3) 02/08/19 16:59 Total Bilirubin 1.00 mg/dL (0.2-1.0) 02/08/19 16:59 AST 19 U/L (13-39) 02/08/19 16:59 ALT 32 U/L (7-52) 02/08/19 16:59 Alkaline Phosphatase 60 U/L (34-104) 02/08/19 16:59 Troponin I 0.01 ng/mL (<0.04) 02/08/19 16:59 Total Protein 7.1 g/dL (6.4-8.9) 02/08/19 16:59 Albumin 4.5 g/dL (3.2-5.2) 02/08/19 16:59 Globulin 2.6 g/dL (2-4) 02/08/19 16:59 Albumin/Globulin Ratio 1.7 (1-3) 02/08/19 16:59 Blood Type AB Negative 02/08/19 16:59 Antibody Screen Negative 02/08/19 16:59
[2019-02-10] MEDS: Morphine INJ* 2 MG/ML 1 ML SYRINGE (TWO MG - NEW SYRINGE VERSION) IV PRN ×2 (15:00→21:36)
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
[2019-02-10] MEDS ORDERED: Magnesium Hydroxide LIQ* 30 ML UDC PO PRN (17:16)
[2019-02-10] MEDS ORDERED: Polyethylene Glycol 3350* 17 GM PACKET PO PRN (17:16)
[2019-02-10] MEDS ORDERED: Senna TAB PO PRN (17:16)
[2019-02-10] MEDS: Magnesium Hydroxide LIQ* 30 ML UDC PO SCH (21:33)
[2019-02-10] MEDS: Docusate CAP* 100 MG PO SCH (21:33)
[2019-02-11] MEDS: oxyCODONE/Acetamin 5/325 MG* TAB PO PRN ×3 (03:38→11:21)
[2019-02-11] MEDS: oxyCODONE TAB* 5 MG TAB PO PRN ×3 (03:39→11:25)
[2019-02-11] MEDS: Magnesium Hydroxide LIQ* 30 ML UDC PO SCH ×2 (07:25→07:48)
[2019-02-11] MEDS: Docusate CAP* 100 MG PO SCH (07:25)
[2019-02-11] MEDS: Apixaban* 2.5 MG TAB PO SCH (07:25)
--- NOTE | 2019-02-11 09:13 | PN ---
Progress Note - Progress Note Date of Service: 02/11/19 SOAP: Subjective: resting comfortably in bed with no significant complaints of pain Objective: Vital Signs Temp Pulse Resp BP Pulse Ox 99.1 F 74 14 122/68 95 02/11/19 08:12 02/11/19 08:12 02/11/19 08:12 02/11/19 08:12 02/11/19 08:12 Laboratory Last Values WBC 8.9 10^3/uL (3.5-10.8) 02/09/19 05:24 RBC 4.97 10^6 /uL (4.18-5.48) 02/09/19 05:24 Hgb 15.0 g/dL (14.0-18.0) 02/09/19 05:24 Hct 44 % (42-52) 02/09/19 05:24 MCV 89 fL (80-94) 02/09/19 05:24 MCH 30 pg (27-31) 02/09/19 05:24 MCHC 34 g/dL (31-36) 02/09/19 05:24 RDW 13 % (10-15) 02/09/19 05:24 Plt Count 207 10^3/uL (150-450) 02/09/19 05:24 MPV 7.0 fL (7.4-10.4) L 02/09/19 05:24 Neut % (Auto) 68.7 % 02/09/19 05:24 Lymph % (Auto) 18.2 % 02/09/19 05:24 [place] % (Auto) 10.3 % 02/09/19 05:24 Eos % (Auto) 2.5 % 02/09/19 05:24 Baso % (Auto) 0.3 % 02/09/19 05:24 Absolute Neuts (auto) 6.1 10^3/ul (1.5-7.7) 02/09/19 05:24 Absolute Lymphs (auto) 1.6 10^3/ul (1.0-4.8) 02/09/19 05:24 Absolute Monos (auto) 0.9 10^3/ul (0-0.8) H 02/09/19 05:24 Absolute Eos (auto) 0.2 10^3/ul (0-0.6) 02/09/19 05:24 Absolute Basos (auto) 0.0 10^3/ul (0-0.2) 02/09/19 05:24 Absolute Nucleated RBC 0.0 10^3/ul 02/09/19 05:24 Nucleated RBC % 0.0 02/09/19 05:24 INR (Anticoag Therapy) 0.93 (0.82-1.09) 02/08/19 16:59 APTT 31.0 seconds (26.0-38.0) 02/08/19 16:59 Sodium 137 mmol/L (135-145) 02/08/19 16:59 Potassium 4.1 mmol/L (3.5-5.0) 02/08/19 16:59 Chloride 101 mmol/L (101-111) 02/08/19 16:59 Carbon Dioxide 26 mmol/L (22-32) 02/08/19 16:59 Anion Gap 10 mmol/L (2-11) 02/08/19 16:59 BUN 21 mg/dL (6-24) 02/08/19 16:59 Creatinine 1.10 mg/dL (0.67-1.17) 02/08/19 16:59 Est GFR ( Amer) 80.1 (>60) 02/08/19 16:59 Est GFR (Non-Af Amer) 66.2 (>60) 02/08/19 16:59 BUN/Creatinine Ratio 19.1 (8-20) 02/08/19 16:59 Glucose 130 mg/dL (70-100) H 02/08/19 16:59 Lactic Acid 1.6 mmol/L (0.5-2.0) 02/08/19 16:59 Calcium 9.5 mg/dL (8.6-10.3) 02/08/19 16:59 Total Bilirubin 1.00 mg/dL (0.2-1.0) 02/08/19 16:59 AST 19 U/L (13-39) 02/08/19 16:59 ALT 32 U/L (7-52) 02/08/19 16:59 Alkaline Phosphatase 60 U/L (34-104) 02/08/19 16:59 Troponin I 0.01 ng/mL (<0.04) 02/08/19 16:59 Total Protein 7.1 g/dL (6.4-8.9) 02/08/19 16:59 Albumin 4.5 g/dL (3.2-5.2) 02/08/19 16:59 Globulin 2.6 g/dL (2-4) 02/08/19 16:59 Albumin/Globulin Ratio 1.7 (1-3) 02/08/19 16:59 Blood Type AB Negative 02/08/19 16:59 Antibody Screen Negative 02/08/19 16:59 incision: c/d; dressing changed PE: able to dorsi flex/plantar flex, 2+ DP pulse and intact sensation Assessment: s/p ORIF right hip; POD #2 Plan: 1) Eliquis BID for DVT prophylaxis 2) continue current pain regimen 3) hospitalist co-managing 4) PMRU today; F/U with Dr. Monique in 2 weeks
[2019-02-11 11:20] VITALS: BP 125/66
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
== END 2019-02-11 11:30 | DRG 482 ==
LOC: ED 16:10 → SSU 20:39
PROVIDERS: ADMIT Internal Medicine; ATTEND Internal Medicine
PROC: 0QS606Z Reposition Right Upper Femur with Intramedullary Internal Fixation Device, Open Approach (ICD-10-PCS; principal; 2019-02-09 18:00)
DX: S72.141A Displaced intertrochanteric fracture of right femur, initial encounter for closed fracture (principal); M19.032 Primary osteoarthritis, left wrist; S72.21XA Displaced subtrochanteric fracture of right femur, initial encounter for closed fracture; M19.031 Primary osteoarthritis, right wrist; E78.00 Pure hypercholesterolemia, unspecified; F41.9 Anxiety disorder, unspecified; Z96.651 Presence of right artificial knee joint; F32.9 Major depressive disorder, single episode, unspecified; Z72.89 Other problems related to lifestyle; Y92.413 State road as the place of occurrence of the external cause; Z87.891 Personal history of nicotine dependence; Z82.49 Family history of ischemic heart disease and other diseases of the circulatory system; Z83.3 Family history of diabetes mellitus; Z80.8 Family history of malignant neoplasm of other organs or systems; Z88.0 Allergy status to penicillin; V29.3XXA Motorcycle rider (driver) (passenger) injured in unspecified nontraffic accident, initial encounter
CPT/HCPCS: 36415; 71045; 76000; 80053; 83605; 84484; 85025; 85610; 85730; 86850; 86900; 86901; 93005; 99285; A9270-GY; C1713; C1776; G8978-GP-CL; G8979-GP-CI; G8987-GO-CL; G8988-GO-CI; J1644; J2060; J2250; J2270; J2405; J3010; J3490

== ENCOUNTER 2019-02-11 07:22 | Inpatient (IN) | payer MEDICARE, BC ==
[2019-02-11] MEDS ORDERED: Bisacodyl SUPP* 10 MG SUPP PR PRN (12:56)
[2019-02-11] MEDS ORDERED: Magnesium Hydroxide LIQ* 30 ML UDC PO PRN (12:56)
[2019-02-11] MEDS: oxyCODONE/Acetamin 5/325 MG* TAB PO PRN ×2 (15:46→21:06)
[2019-02-11] MEDS: LORazepam TAB(*) 0.5 MG PO PRN (18:34)
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
[2019-02-11] MEDS: Senna TAB PO SCH (21:04)
[2019-02-11] MEDS: Apixaban* 2.5 MG TAB PO SCH (21:05)
[2019-02-11] MEDS: Docusate CAP* 100 MG PO SCH (21:05)
[2019-02-12] MEDS: LORazepam TAB(*) 0.5 MG PO PRN ×3 (01:02→20:09)
[2019-02-12] MEDS: oxyCODONE/Acetamin 5/325 MG* TAB PO PRN ×5 (01:06→21:47)
[2019-02-12 05:38] LABS: ABS Eosinophils 0.4 10^3/ul (0-0.6); ABS Lymphocytes 1.9 10^3/ul (1.0-4.8); ABS Monocytes 1.3 10^3/ul (0-0.8); ABS Neutrophils 5.9 10^3/ul (1.5-7.7); Eosinophil % 3.8 %; Hematocrit 36 % (42-52); Hemoglobin 12.8 g/dL (14.0-18.0); Lymphocyte % 20.2 %; Mean Corpuscular HGB Conc 35 g/dL (31-36); Mean Corpuscular Hemoglobin 31 pg (27-31); Mean Corpuscular Volume 88 fL (80-94); Mean Platelet Volume 7.3 fL (7.4-10.4); Nucleated Red Blood Cells % 0.1; Platelet Count 170 10^3/uL (150-450); Red Blood Count 4.11 10^6 /uL (4.18-5.48); Red Cell Distribution Width 13 % (10-15); White Blood Count 9.5 10^3/uL (3.5-10.8)
[2019-02-12 06:08] LABS: Albumin 3.6 g/dL (3.2-5.2); Albumin/Globulin Ratio 1.4 (1-3); BUN/Creatinine Ratio 18.1 (8-20); Calcium 8.7 mg/dL (8.6-10.3); EGFR African American 110.8 (>60); EGFR Non-African American 91.6 (>60); Globulin 2.5 g/dL (2-4); Potassium 4.2 mmol/L (3.5-5.0); Total Bilirubin 1.3 mg/dL (0.2-1.0); Total Protein 6.1 g/dL (6.4-8.9)
[2019-02-12] MEDS: Docusate CAP* 100 MG PO SCH ×2 (07:11→20:08)
[2019-02-12] MEDS: Apixaban* 2.5 MG TAB PO SCH ×2 (07:37→20:10)
--- NOTE | 2019-02-12 10:49 | PN ---
Progress Note Date of Service: 02/12/19 Note: RADHIKA Cantu JOSEMANUEL was visited. Nursing and therapy notes read and reviewed. No chest pain, shortness of breath or abdominal pain. Current Medications: Active Medications Generic Name Dose Route Start Last Admin Trade Name Freq PRN Reason Stop Dose Admin Acetaminophen 650 mg 02/11/19 12:56 Tylenol Tab* PO Q6H PRN FEVER/PAIN Apixaban 2.5 mg 02/11/19 21:00 02/12/19 07:37 Eliquis* PO 2.5 mg BID JORDAN Administration Bisacodyl 10 mg 02/11/19 12:56 Dulcolax Supp* AR DAILY PRN CONSTIPATION Docusate Sodium 100 mg 02/11/19 21:00 02/12/19 07:11 Colace Cap* PO Not Given BID JORDAN Lactulose 30 ml 02/11/19 19:10 Lactulose* PO Q6H PRN CONSTIPATION Lorazepam 0.5 mg 02/11/19 13:02 02/12/19 07:04 Ativan Tab(*) PO 0.5 mg Q6H PRN Administration ANXIETY Magnesium Hydroxide 30 ml 02/11/19 12:56 02/11/19 21:06 Milk Of Magnesia Liq* PO 30 ml Q6H PRN Administration CONSTIPATION Oxycodone/Acetaminophen 2 tab 02/11/19 13:01 02/12/19 07:37 Percocet 5/325 Tab* PO 2 tab Q4H PRN Administration PAIN - SEVERE Oxycodone/Acetaminophen 1 tab 02/11/19 13:02 Percocet 5/325 Tab* PO Q4H PRN PAIN - MODERATE TO SEVERE Senna 2 tab 02/11/19 21:00 02/11/19 21:04 Senokot Tab* PO 2 tab BEDTIME JORDAN Administration Vital Signs: Vital Signs Temp Pulse Resp BP Pulse Ox 98.0 F 71 16 132/73 97 02/12/19 05:00 02/12/19 05:00 02/12/19 07:37 02/12/19 05:00 02/12/19 05:00 Lab Results: Laboratory Results - last 24 hr 02/12/19 02/12/19 05:12 05:12 WBC 9.5 RBC 4.11 L Hgb 12.8 L Hct 36 L MCV 88 MCH 31 MCHC 35 RDW 13 Plt Count 170 MPV 7.3 L Neut % (Auto) 62.2 Lymph % (Auto) 20.2 Bartholomew % (Auto) 13.3 Eos % (Auto) 3.8 Baso % (Auto) 0.5 Absolute Neuts (auto) 5.9 Absolute Lymphs (auto) 1.9 Absolute Monos (auto) 1.3 H Absolute Eos (auto) 0.4 Absolute Basos (auto) 0.0 Absolute Nucleated RBC 0.0 Nucleated RBC % 0.1 Sodium 138 Potassium 4.2 Chloride 102 Carbon Dioxide 28 Anion Gap 8 BUN 15 Creatinine 0.83 Est GFR ( Amer) 110.8 Est GFR (Non-Af Amer) 91.6 BUN/Creatinine Ratio 18.1 Glucose 102 H Calcium 8.7 Total Bilirubin 1.30 H AST 15 ALT 16 Alkaline Phosphatase 44 Total Protein 6.1 L Albumin 3.6 Globulin 2.5 Albumin/Globulin Ratio 1.4 Exam: GEN: no acute distress. alert and appropriate LUNGS: Clear to auscultation bilaterally HEART: regular rate and rhythm ABDOMEN: Soft, + bowel sounds, non-tender, non-distended EXTREMITIES: Right hip dressing c/d/i. No edema. NEUROLOGIC: BLE motor 5/5 with pain limited testing of right hip and knee. Sensation intact. Assessment/Plan: 68yo man s/p right hip fracture ORIF #Right hip fracture: f/u Dr. Monique. WBAT. PT/OT. Pain control with oral meds. #DVT ppx: eliquis #Anxiety: ativan prn #Advanced directives: full code #Estimated LOS: IPOC today. 02/12/19 10:47
--- NOTE | 2019-02-12 12:34 | PMRUTEAM ---
PMRU: Team Meeting Current Status: Nursing: Current Status Skin Deviations [Right Hip] Incision Skin Deviation Description [ dressingsx2 Right Hip] Physical Therapy: Current Status Bed Mobility Assistance Min Assist Transfer Mobility Assistance Min Assist Transfer/Bed Mobility Rolling Walker Recommended Devices Ambulation Assistance Min Assist Ambulation Assistive Devices Rolling Walker Number of Feet Patient 10 Ambulated Stairs Assistance Not Tested Stairs Recommended Devices Two Rails Number of Stairs 5 Occupational Therapy: Current Status Upper Body Dressing Min Assist Lower Body Dressing Total Assist Bathing Mod Assist,2 Person Assist Toileting Max Asst,Total Assist Toilet Transfer Min Assist,2 Person Assist Eating Independent Rec Therapy: Current Status Summary of Assessment and Pt. was open to conversation - very engaged Clinical Impression throughout. Pt. identified with interests and active involvement in them prior to admission. Pt . was tearful briefly when talking about his sister but changed the topic and did not appear to want to discuss it further. Pt. was interested in suggested meditation apps, pet therapy and continued leisure visits. Treatment Goals Pt. will engage in leisure activities on the unit. Treatment Plan Provide recreation therapy services and encourage involvement. Social Work: Current Status Discharge Plan Return home with home care svs and family support Potential for Family Training pt's son is involved and supportive Anticipated Discharge Home Destination Discharge With home care svs and family support Goals: Physical Therapy: Initial Goals Bed Mobility Assistance Independent Transfer Mobility Assistance Independent Transfer/Bed Mobility Rolling Walker Recommended Devices Ambulation Independent Ambulation Recommended Devices Rolling Walker Ambulation Distance 150 Stairs Assistance Independent Stair Recommended Devices One Rail Number of Stairs flight Home Exercise Program Independent Assistance Occupational Therapy: Initial Goals Goals to be Completed in (Days 7-10 ) Upper Body Bathing Routine Independent Lower Body Bathing Routine Modified Independent with Upper Body Dressing Routine Independent Lower Body Dressing Routine Modified Independent with Toilet Hygeine and Clothing Modified Independent with Management Routine Toilet Transfer Routine Modified Independent with Tub Transfer Routine Modified Independent with Functional Transfers for ADL Modified Independent with Grooming Routine Independent Feeding Routine Independent Social Work: Goals Discharge Plan Return home with home care svs and family support Potential for Family Training pt's son is involved and supportive Anticipated Discharge Home Destination Discharge With home care svs and family support Care Plan: Self medication management Keep hydrated Bowel management to prevent constipation Wound monitoring See nursing POC for details. Medicine Note: Length of Stay: [1.5wks] Anticipated Discharge Destination: Home Tentative Discharge Date: [02/23/19] Discharged to: [home]
[2019-02-12] MEDS: Senna TAB PO SCH (20:08)
[2019-02-13] MEDS: oxyCODONE/Acetamin 5/325 MG* TAB PO PRN ×4 (04:00→22:49)
[2019-02-13] MEDS: Docusate CAP* 100 MG PO SCH ×2 (08:21→21:40)
[2019-02-13] MEDS: Apixaban* 2.5 MG TAB PO SCH ×2 (08:21→21:05)
--- NOTE | 2019-02-13 09:20 | PN ---
Progress Note Date of Service: 02/13/19 Note: RADHIKA JARAMILLOERSSON was visited. Nursing and therapy notes read and reviewed. No chest pain, shortness of breath or abdominal pain. Current Medications: Active Medications Generic Name Dose Route Start Last Admin Trade Name Freq PRN Reason Stop Dose Admin Acetaminophen 650 mg 02/11/19 12:56 Tylenol Tab* PO Q6H PRN FEVER/PAIN Apixaban 2.5 mg 02/11/19 21:00 02/13/19 08:21 Eliquis* PO 2.5 mg BID JORDAN Administration Bisacodyl 10 mg 02/11/19 12:56 Dulcolax Supp* AL DAILY PRN CONSTIPATION Docusate Sodium 100 mg 02/11/19 21:00 02/13/19 08:21 Colace Cap* PO 100 mg BID JORDAN Administration Lactulose 30 ml 02/11/19 19:10 Lactulose* PO Q6H PRN CONSTIPATION Lorazepam 0.5 mg 02/11/19 13:02 02/12/19 20:09 Ativan Tab(*) PO 0.5 mg Q6H PRN Administration ANXIETY Magnesium Hydroxide 30 ml 02/11/19 12:56 02/11/19 21:06 Milk Of Magnesia Liq* PO 30 ml Q6H PRN Administration CONSTIPATION Oxycodone/Acetaminophen 2 tab 02/11/19 13:01 02/13/19 08:20 Percocet 5/325 Tab* PO 2 tab Q4H PRN Administration PAIN - SEVERE Oxycodone/Acetaminophen 1 tab 02/11/19 13:02 02/12/19 21:47 Percocet 5/325 Tab* PO 1 tab Q4H PRN Administration PAIN - MODERATE TO SEVERE Senna 2 tab 02/11/19 21:00 02/12/19 20:08 Senokot Tab* PO Not Given BEDTIME [facility] Vital Signs: Vital Signs Temp Pulse Resp BP Pulse Ox 98.3 F 74 18 135/70 95 02/13/19 06:18 02/13/19 06:18 02/13/19 08:20 02/13/19 06:18 02/13/19 06:18 Exam: GEN: no acute distress. alert and appropriate LUNGS: Clear to auscultation bilaterally HEART: regular rate and rhythm ABDOMEN: Soft, + bowel sounds, non-tender, non-distended EXTREMITIES: Right hip dressing removed. Seth intact in 3 areas. Most inferior incison has a dave sized area of denuded skin. No edema. NEUROLOGIC: BLE motor 5/5 with pain limited testing of right hip and knee. Sensation intact. Assessment/Plan: 68yo man s/p right hip fracture ORIF #Right hip fracture: f/u Dr. Monique. WBAT. PT/OT. Pain control with oral meds. #DVT ppx: eliquis #Anxiety: ativan prn #Advanced directives: full code #Estimated LOS: 02/23/19 02/13/19 09:20
[2019-02-13] MEDS: LORazepam TAB(*) 0.5 MG PO PRN (15:49)
[2019-02-13] MEDS: Senna TAB PO SCH (21:40)
[2019-02-14] MEDS: oxyCODONE/Acetamin 5/325 MG* TAB PO PRN ×4 (04:55→21:49)
[2019-02-14] MEDS: Apixaban* 2.5 MG TAB PO SCH ×2 (08:04→21:49)
[2019-02-14] MEDS: Docusate CAP* 100 MG PO SCH ×2 (08:04→22:02)
--- NOTE | 2019-02-14 10:37 | PN ---
Progress Note Date of Service: 02/14/19 Note: RADHIKA ABERNATHY was visited. Nursing and therapy notes read and reviewed. He feels he is doing better. No chest pain, shortness of breath or abdominal pain. Current Medications: Active Medications Generic Name Dose Route Start Last Admin Trade Name Freq PRN Reason Stop Dose Admin Acetaminophen 650 mg 02/11/19 12:56 Tylenol Tab* PO Q6H PRN FEVER/PAIN Apixaban 2.5 mg 02/11/19 21:00 02/14/19 08:04 Eliquis* PO 2.5 mg BID JORDAN Administration Bisacodyl 10 mg 02/11/19 12:56 Dulcolax Supp* [place] DAILY PRN CONSTIPATION Docusate Sodium 100 mg 02/11/19 21:00 02/14/19 08:04 Colace Cap* PO 100 mg BID JORDAN Administration Lactulose 30 ml 02/11/19 19:10 Lactulose* PO Q6H PRN CONSTIPATION Lorazepam 0.5 mg 02/11/19 13:02 02/13/19 15:49 Ativan Tab(*) PO 0.5 mg Q6H PRN Administration ANXIETY Magnesium Hydroxide 30 ml 02/11/19 12:56 02/11/19 21:06 Milk Of Magnesia Liq* PO 30 ml Q6H PRN Administration CONSTIPATION Oxycodone/Acetaminophen 2 tab 02/11/19 13:01 02/13/19 08:20 Percocet 5/325 Tab* PO 2 tab Q4H PRN Administration PAIN - SEVERE Oxycodone/Acetaminophen 1 tab 02/11/19 13:02 02/14/19 10:18 Percocet 5/325 Tab* PO 1 tab Q4H PRN Administration PAIN - MODERATE TO SEVERE Senna 2 tab 02/11/19 21:00 02/13/19 21:40 Senokot Tab* PO Not Given BEDTIME [facility] Vital Signs: Vital Signs Temp Pulse Resp BP Pulse Ox 98.3 F 83 18 154/82 97 02/14/19 04:58 02/14/19 04:58 02/14/19 10:18 02/14/19 04:58 02/14/19 04:58 Exam: GEN: no acute distress. alert and appropriate LUNGS: Clear to auscultation bilaterally HEART: regular rate and rhythm ABDOMEN: Soft, + bowel sounds, non-tender, non-distended EXTREMITIES: No edema. NEUROLOGIC: BLE motor 5/5 with pain limited testing of right hip and knee. Sensation intact. Assessment/Plan: 68yo man s/p right hip fracture ORIF #Right hip fracture: f/u Dr. Monique. WBAT. PT/OT. Pain control with oral meds. #DVT ppx: eliquis #Anxiety: ativan prn #Hypertension: follow VS. No prior medication. #Advanced directives: full code #Estimated LOS: 02/23/19 02/14/19 10:37
[2019-02-14] MEDS: LORazepam TAB(*) 0.5 MG PO PRN (12:23)
[2019-02-14] MEDS: Senna TAB PO SCH (22:02)
[2019-02-15] MEDS: LORazepam TAB(*) 0.5 MG PO PRN (01:55)
[2019-02-15] MEDS: oxyCODONE/Acetamin 5/325 MG* TAB PO PRN ×4 (03:52→21:17)
[2019-02-15] MEDS: Apixaban* 2.5 MG TAB PO SCH ×2 (08:24→21:16)
[2019-02-15] MEDS: Docusate CAP* 100 MG PO SCH ×2 (08:26→20:01)
[2019-02-15] MEDS: Acetaminophen TAB* 325 MG PO PRN (13:50)
--- NOTE | 2019-02-15 18:16 | PN ---
Progress Note Date of Service: 02/15/19 Note: RADHIKA ABERNATHY was visited. Therapy notes read and reviewed. He still has a bit of pain but is moving better. Otherwise doing ok. Current Medications: Active Medications Generic Name Dose Route Start Last Admin Trade Name Freq PRN Reason Stop Dose Admin Acetaminophen 650 mg 02/11/19 12:56 02/15/19 13:50 Tylenol Tab* PO 650 mg Q6H PRN Administration FEVER/PAIN Apixaban 2.5 mg 02/11/19 21:00 02/15/19 08:24 Eliquis* PO 2.5 mg BID JORDAN Administration Bisacodyl 10 mg 02/11/19 12:56 Dulcolax Supp* [place] DAILY PRN CONSTIPATION Docusate Sodium 100 mg 02/11/19 21:00 02/15/19 08:26 Colace Cap* PO 100 mg BID JORDAN Administration Lactulose 30 ml 02/11/19 19:10 Lactulose* PO Q6H PRN CONSTIPATION Lorazepam 0.5 mg 02/11/19 13:02 02/15/19 01:55 Ativan Tab(*) PO 0.5 mg Q6H PRN Administration ANXIETY Magnesium Hydroxide 30 ml 02/11/19 12:56 02/11/19 21:06 Milk Of Magnesia Liq* PO 30 ml Q6H PRN Administration CONSTIPATION Oxycodone/Acetaminophen 2 tab 02/11/19 13:01 02/13/19 08:20 Percocet 5/325 Tab* PO 2 tab Q4H PRN Administration PAIN - SEVERE Oxycodone/Acetaminophen 1 tab 02/11/19 13:02 02/15/19 15:22 Percocet 5/325 Tab* PO 1 tab Q4H PRN Administration PAIN - MODERATE TO SEVERE Senna 2 tab 02/11/19 21:00 02/14/19 22:02 Senokot Tab* PO Not Given BEDTIME [facility] Vital Signs: Vital Signs Temp Pulse Resp BP Pulse Ox 97.9 F 70 16 126/64 96 02/15/19 15:24 02/15/19 15:24 02/15/19 15:24 02/15/19 15:24 02/15/19 15:24 Exam: GEN: no acute distress. alert and appropriate LUNGS: Clear to auscultation bilaterally HEART: regular rate and rhythm ABDOMEN: Soft, + bowel sounds, non-tender, non-distended EXTREMITIES: No edema. NEUROLOGIC: BLE motor 5/5 with pain limited testing of right hip and knee. Sensation intact. Assessment/Plan: 68yo man s/p right hip fracture ORIF 1. Right hip fracture: f/u Dr. Monique. WBAT. PT/OT. Pain control with oral meds. 2. DVT ppx: eliquis 3. Anxiety: ativan prn 4. Hypertension: follow VS. No prior medication. 5. Advanced directives: full code 6. Estimated LOS: 02/23/19 02/15/19 18:16
[2019-02-15] MEDS: Senna TAB PO SCH (20:01)
[2019-02-16] MEDS: oxyCODONE/Acetamin 5/325 MG* TAB PO PRN ×4 (03:10→19:35)
[2019-02-16] MEDS: Apixaban* 2.5 MG TAB PO SCH ×2 (10:26→20:21)
[2019-02-16] MEDS: Docusate CAP* 100 MG PO SCH ×2 (10:30→20:22)
--- NOTE | 2019-02-16 12:49 | PMRUTEAM ---
PMRU: Team Meeting Current Status: Nursing: Current Status Skin Deviations [Right Hip] Incision Skin Deviation Description [ drsgs in place Right Hip] Physical Therapy: Current Status Bed Mobility Assistance Supervision Transfer Mobility Assistance Supervision Transfer/Bed Mobility Rolling Walker Recommended Devices Ambulation Assistance Supervision Ambulation Assistive Devices Rolling Walker Number of Feet Patient 300 Ambulated Stairs Assistance Supervision Stairs Recommended Devices Two Rails Number of Stairs 2 x 5 Curb Not Tested Occupational Therapy: Current Status Upper Body Dressing Supervision Lower Body Dressing Supervision Bathing Min Assist Bathing Progress assist for right foot Toileting Supervision Toilet Transfer Supervision Shower Transfer Supervision Eating Independent Rec Therapy: Current Status Summary of Assessment and Recreation Therapy has been introduced to pt. and Clinical Impression assessment is complete. Pt. has been involved in leisure visits and in pet therapy. Treatment Goals Pt. will engage in leisure activities on the unit. Treatment Plan Provide recreation therapy services and encourage involvement. Provided pt. with relaxation apps for his iPad. 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 Eating generally 70-100% of meals so far; eating independently. No evidence difficulty chewing/ swallowing per RN assessments. BMP unremarkable as of 02/12. Last BM 02/14. Skin intact per nursing assessments. No acute nutrition concerns identified; regular diet remains appropriate. Full nutrition assessment to follow per protocol. Goals: Physical Therapy: Initial Goals Bed Mobility Assistance Independent Transfer Mobility Assistance Independent Transfer/Bed Mobility Rolling Walker Recommended Devices Ambulation Independent Ambulation Recommended Devices Rolling Walker Ambulation Distance 150 Stairs Assistance Independent Stair Recommended Devices One Rail Number of Stairs flight Home Exercise Program Independent Assistance Physical Therapy: Updated Goals Transfer/Bed Mobility Rolling Walker Recommended Devices Occupational Therapy: Initial Goals Goals to be Completed in (Days 7-10 ) Upper Body Bathing Routine Independent Lower Body Bathing Routine Modified Independent with Upper Body Dressing Routine Independent Lower Body Dressing Routine Modified Independent with Toilet Hygeine and Clothing Modified Independent with Management Routine Toilet Transfer Routine Modified Independent with Tub Transfer Routine Modified Independent with Functional Transfers for ADL Modified Independent with Grooming Routine Independent Feeding Routine Independent Nutrition: Goals Intervention Goals 1. Intake will remain adequate to promote post-op healing and maintain stable wt 2. Pt will maintain regular bowel pattern without constipation/diarrhea Social Work: Goals Discharge Plan return home with home care svs and family support Potential for Family Training pt's family is involved and supportive Anticipated Discharge Home Destination Discharge With home care svs and family support Care Plan: Care Plan ADL's - Improve/Maintain Start: 02/13/19 10:44 Freq: DAILY Status: Active Target: Protocol: Activity Type Activity Date Activity User E-Sign Co-Sign Detail Recorded Client Recorded Date Recorded By Document 02/15/19 10:25 [id number] 02/15/19 10:25 [id number] 02/15/19 10:25 PMRU Outcome: ADL's/ADL Transfers Orders/Interventions Occupational Therapy Evaluation & Treatment Communication Tool in Patient Room Device Yes Address Deficits Secondary To: right hip ORIF Patient to receive OT 5x/wk for 60-120 Therex min/day Self Care Management Group Therapy UE/LE ADL's with Assist Yes: [place]iney ADL Transfers with Assist Yes: [place] Toileting: Transfers,Clothing Management Yes: [place]iney ,Hygeine w/Assist Light Kitchen/Laundry w/Assist No Progression Toward Outcome/Goals Progressing Outcome/Goals Met Pt participated well in treatment session, appears anxious at times and reports he may need assistance at d/c as son works during the day, however pt able to complete all tasks and transfers during session with supervision. Will plan for shower ADL to fully assess ADL routine next date if pt agreeable. Coping/Psych-Improve/Maintain Start: 02/13/19 10:53 Freq: QSHIFT Status: Active Target: Protocol: Activity Type Activity Date Activity User E-Sign Co-Sign Detail Recorded Client Recorded Date Recorded By Document 02/15/19 18:36 [id number] 02/15/19 18:38 [id number] 02/15/19 18:36 PMRU Outcome: Coping/Psychosocial Coping Outcome/Goals Verbalization of Acceptance of Rehab Admit Verbalization of Sense of Control Over Health Status Willingness to Participate in Treatment Plan and Basic Needs Absence of Destructive Behavior to Self/Others Psychosocial Outcome/Goals Maintain/ Improve Emotional Health Demonstrates Knowledge of Healthy Coping Mechanisms Available Cooperate/ Participate in Plan Progression Toward Outcome/Goals - Progressing Coping Coping Outcome/Goals Met Demonstrates Understanding of Rehab Admit and Goal Setting Process Discharge Planning - Improve/Maintain Start: 02/13/19 10:53 Freq: DAILY Status: Active Target: Protocol: Activity Type Activity Date Activity User E-Sign Co-Sign Detail Recorded Client Recorded Date Recorded By Document 02/16/19 00:00 [id number] 02/16/19 00:05 [id number] 02/16/19 00:00 PMRU Outcome: Discharge Planning Update Patient Family No Outcome/Goals Demonstrates Understanding of Discharge Plan Progression Toward Outcome/Goals Progressing Education-Improve/Maintain Start: 02/13/19 10:53 Freq: QSHIFT Status: Active Target: Protocol: Activity Type Activity Date Activity User E-Sign Co-Sign Detail Recorded Client Recorded Date Recorded By Document 02/15/19 18:36 [id number] 02/15/19 18:38 [id number] 02/15/19 18:36 PMRU Outcome: Education Outcome/Goals Demonstrate/ Verbalize Understanding of Written Discharge Instructions Demonstrates Skills Encourage Questions Progression Toward Outcome/Goals Progressing Pain/Comfort- Improve/Maintain Start: 02/13/19 10:53 Freq: QSHIFT Status: Active Target: Protocol: Activity Type Activity Date Activity User E-Sign Co-Sign Detail Recorded Client Recorded Date Recorded By Document 02/15/19 18:36 [id number] [id number] 02/15/19 18:38 [id number] 02/15/19 18:36 PMRU Outcome: Pain/Comfort Outcome/Goals Demonstrates Knowledge and Use of Available Comfort Measures Achieves Acceptable Comfort/Pain Level as Determined by Patient/Condit Maintain Comfort Level Allowing Patient to Fully Participate in Rehab Progression Toward Outcome/Goals Progressing Outcome/Goals Met Comment pain medication given as needed Safety- Improve/Maintain Start: 02/13/19 10:53 Freq: QSHIFT Status: Active Target: Protocol: Activity Type Activity Date Activity User E-Sign Co-Sign Detail Recorded Client Recorded Date Recorded By Document 02/15/19 20:00 [id number] 02/15/19 21:26 [id number] 02/15/19 20:00 PMRU Outcome: Safety Outcome/Goals Remain Free of Injury or Harm Cooperates with Safety Measures for Least Restrictive Environment Prevent Falls/ Injury Progression Toward Outcome/Goals Progressing Skin- Improve/Maintain Start: 02/13/19 10:53 Freq: QSHIFT Status: Active Target: Protocol: Activity Type Activity Date Activity User E-Sign Co-Sign Detail Recorded Client Recorded Date Recorded By Document 02/15/19 20:00 [id number] 02/15/19 21:26 [id number] 02/15/19 20:00 PMRU Outcome: Skin Skin Risk Level Medium Skin Orders Dressing Change Outcome/Goals Maintain/ Improve Skin Intergrity Surgical Incisions Healing Progression Toward Outcome/Goals Progressing Medicine Note: Length of Stay: 1 week Anticipated Discharge Destination: Home Tentative Discharge Date: 02/23/19 Discharged to: Home
[2019-02-16] MEDS: Acetaminophen TAB* 325 MG PO PRN (14:04)
--- NOTE | 2019-02-16 16:32 | PN ---
Progress Note Date of Service: 02/16/19 Note: RADHIKA ABERNATHY was visited. Therapy notes read and reviewed. He was discussed in interdisciplinary team rounds. He has improved with a lot of his mobility and pain seems better. Remains quite anxious, he does not wish to go back to Xanax yet, stay on Ativan till Friday Current Medications: Active Medications Generic Name Dose Route Start Last Admin Trade Name Freq PRN Reason Stop Dose Admin Acetaminophen 650 mg 02/11/19 12:56 02/16/19 14:04 Tylenol Tab* PO 650 mg Q6H PRN Administration FEVER/PAIN Apixaban 2.5 mg 02/11/19 21:00 02/16/19 10:26 Eliquis* PO 2.5 mg BID JORDAN Administration Bisacodyl 10 mg 02/11/19 12:56 Dulcolax Supp* [place] DAILY PRN CONSTIPATION Docusate Sodium 100 mg 02/11/19 21:00 02/16/19 10:30 Colace Cap* PO Not Given BID JORDAN Lactulose 30 ml 02/11/19 19:10 Lactulose* PO Q6H PRN CONSTIPATION Lorazepam 0.5 mg 02/11/19 13:02 02/15/19 01:55 Ativan Tab(*) PO 0.5 mg Q6H PRN Administration ANXIETY Magnesium Hydroxide 30 ml 02/11/19 12:56 02/11/19 21:06 Milk Of Magnesia Liq* PO 30 ml Q6H PRN Administration CONSTIPATION Oxycodone/Acetaminophen 2 tab 02/11/19 13:01 02/13/19 08:20 Percocet 5/325 Tab* PO 2 tab Q4H PRN Administration PAIN - SEVERE Oxycodone/Acetaminophen 1 tab 02/11/19 13:02 02/16/19 14:31 Percocet 5/325 Tab* PO 1 tab Q4H PRN Administration PAIN - MODERATE TO SEVERE Senna 2 tab 02/11/19 21:00 02/15/19 20:01 Senokot Tab* PO Not Given BEDTIME [facility] Vital Signs: Vital Signs Temp Pulse Resp BP Pulse Ox 98.3 F 67 16 131/65 97 02/16/19 06:00 02/16/19 06:00 02/16/19 16:17 02/16/19 06:00 02/16/19 16:17 Exam: GEN: no acute distress. alert and appropriate LUNGS: Clear to auscultation bilaterally HEART: regular rate and rhythm ABDOMEN: Soft, + bowel sounds, non-tender, non-distended EXTREMITIES: No edema. NEUROLOGIC: BLE motor 5/5 with pain limited testing of right hip and knee. Sensation intact. Assessment/Plan: 68yo man s/p right hip fracture ORIF 1. Right hip fracture: f/u Dr. Monique. WBAT. PT/OT. Pain control with oral meds. 2. DVT ppx: eliquis 3. Anxiety: ativan prn, Xanax next week prior to d/c 4. Hypertension: follow VS. No prior medication. 5. Advanced directives: full code 6. Estimated LOS: 02/23/19 02/16/19 16:33
[2019-02-16] MEDS: Senna TAB PO SCH (20:22)
[2019-02-17] MEDS: oxyCODONE/Acetamin 5/325 MG* TAB PO PRN ×5 (00:25→23:54)
[2019-02-17] MEDS: Apixaban* 2.5 MG TAB PO SCH ×2 (08:34→19:40)
[2019-02-17] MEDS: Docusate CAP* 100 MG PO SCH ×2 (09:26→19:38)
[2019-02-17] MEDS: Senna TAB PO SCH (19:38)
--- NOTE | 2019-02-17 19:38 | PN ---
Progress Note Date of Service: 02/17/19 Note: RADHIKA ABERNATHY was visited. Therapy notes read and reviewed. Able to have a bowel movement today. Otherwise he is doing okay. Pain ok. Current Medications: Active Medications Generic Name Dose Route Start Last Admin Trade Name Freq PRN Reason Stop Dose Admin Acetaminophen 650 mg 02/11/19 12:56 02/16/19 14:04 Tylenol Tab* PO 650 mg Q6H PRN Administration FEVER/PAIN Apixaban 2.5 mg 02/11/19 21:00 02/17/19 08:34 Eliquis* PO 2.5 mg BID JORDAN Administration Bisacodyl 10 mg 02/11/19 12:56 Dulcolax Supp* [place] DAILY PRN CONSTIPATION Docusate Sodium 100 mg 02/11/19 21:00 02/17/19 09:26 Colace Cap* PO Not Given BID JORDAN Lactulose 30 ml 02/11/19 19:10 Lactulose* PO Q6H PRN CONSTIPATION Lorazepam 0.5 mg 02/11/19 13:02 02/15/19 01:55 Ativan Tab(*) PO 0.5 mg Q6H PRN Administration ANXIETY Magnesium Hydroxide 30 ml 02/11/19 12:56 02/11/19 21:06 Milk Of Magnesia Liq* PO 30 ml Q6H PRN Administration CONSTIPATION Oxycodone/Acetaminophen 2 tab 02/11/19 13:01 02/13/19 08:20 Percocet 5/325 Tab* PO 2 tab Q4H PRN Administration PAIN - SEVERE Oxycodone/Acetaminophen 1 tab 02/11/19 13:02 02/17/19 12:47 Percocet 5/325 Tab* PO 1 tab Q4H PRN Administration PAIN - MODERATE TO SEVERE Senna 2 tab 02/11/19 21:00 02/16/19 20:22 Senokot Tab* PO 2 tab BEDTIME JORDAN Administration Vital Signs: Vital Signs Temp Pulse Resp BP Pulse Ox 98.1 F 68 18 145/78 100 02/17/19 17:05 02/17/19 17:05 02/17/19 17:05 02/17/19 17:05 02/17/19 17:05 Exam: GEN: no acute distress. alert and appropriate LUNGS: Clear to auscultation bilaterally HEART: regular rate and rhythm ABDOMEN: Soft, + bowel sounds, non-tender, non-distended EXTREMITIES: No edema. NEUROLOGIC: BLE motor 5/5 with pain limited testing of right hip and knee. Sensation intact. Assessment/Plan: 68yo man s/p right hip fracture ORIF 1. Right hip fracture: f/u Dr. Monique. WBAT. PT/OT. Pain control with oral meds. 2. DVT ppx: eliquis 3. Anxiety: ativan prn, Xanax next week prior to d/c 4. Hypertension: follow VS. No prior medication. 5. Advanced directives: full code 6. Estimated LOS: 02/23/19 02/17/19 19:38
[2019-02-18] MEDS: oxyCODONE/Acetamin 5/325 MG* TAB PO PRN ×4 (04:09→23:48)
[2019-02-18] MEDS: Docusate CAP* 100 MG PO SCH ×2 (08:27→19:58)
[2019-02-18] MEDS: Apixaban* 2.5 MG TAB PO SCH ×2 (08:27→20:00)
--- NOTE | 2019-02-18 17:25 | PN ---
Progress Note Date of Service: 02/18/19 Note: RADHIKA ABERNATHY was visited. Therapy notes read and reviewed. Minimal complaints of pain, he is moving quite well, still quite anxious. Current Medications: Active Medications Generic Name Dose Route Start Last Admin Trade Name Freq PRN Reason Stop Dose Admin Acetaminophen 650 mg 02/11/19 12:56 02/16/19 14:04 Tylenol Tab* PO 650 mg Q6H PRN Administration FEVER/PAIN Apixaban 2.5 mg 02/11/19 21:00 02/18/19 08:27 Eliquis* PO 2.5 mg BID JORDAN Administration Bisacodyl 10 mg 02/11/19 12:56 Dulcolax Supp* [place] DAILY PRN CONSTIPATION Docusate Sodium 100 mg 02/11/19 21:00 02/18/19 08:27 Colace Cap* PO Not Given BID JORDAN Lactulose 30 ml 02/11/19 19:10 Lactulose* PO Q6H PRN CONSTIPATION Lorazepam 0.5 mg 02/11/19 13:02 02/15/19 01:55 Ativan Tab(*) PO 0.5 mg Q6H PRN Administration ANXIETY Magnesium Hydroxide 30 ml 02/11/19 12:56 02/11/19 21:06 Milk Of Magnesia Liq* PO 30 ml Q6H PRN Administration CONSTIPATION Oxycodone/Acetaminophen 2 tab 02/11/19 13:01 02/13/19 08:20 Percocet 5/325 Tab* PO 2 tab Q4H PRN Administration PAIN - SEVERE Oxycodone/Acetaminophen 1 tab 02/11/19 13:02 02/18/19 09:39 Percocet 5/325 Tab* PO 1 tab Q4H PRN Administration PAIN - MODERATE TO SEVERE Senna 2 tab 02/11/19 21:00 02/17/19 19:38 Senokot Tab* PO Not Given BEDTIME [facility] Vital Signs: Vital Signs Temp Pulse Resp BP Pulse Ox 98.2 F 80 18 134/78 100 02/18/19 15:48 02/18/19 15:48 02/18/19 15:48 02/18/19 15:48 02/18/19 15:48 Exam: GEN: no acute distress. alert and appropriate LUNGS: Clear to auscultation bilaterally HEART: regular rate and rhythm ABDOMEN: Soft, + bowel sounds, non-tender, non-distended EXTREMITIES: No edema. NEUROLOGIC: BLE motor 5/5 with pain limited testing of right hip and knee. Sensation intact. Assessment/Plan: 68yo man s/p right hip fracture ORIF 1. Right hip fracture: f/u Dr. Monique. WBAT. PT/OT. Pain control with oral meds. 2. DVT ppx: eliquis 3. Anxiety: ativan prn, Xanax next week prior to d/c 4. Hypertension: follow VS. No prior medication. 5. Advanced directives: full code 6. Estimated LOS: 02/23/19 02/18/19 17:25
[2019-02-18] MEDS: Senna TAB PO SCH (19:59)
[2019-02-18] MEDS: LORazepam TAB(*) 0.5 MG PO PRN (20:02)
[2019-02-19] MEDS: oxyCODONE/Acetamin 5/325 MG* TAB PO PRN ×4 (04:13→22:43)
[2019-02-19 06:24] LABS: ABS Basophils 0.1 10^3/ul (0-0.2); ABS Eosinophils 0.3 10^3/ul (0-0.6); ABS Lymphocytes 1.9 10^3/ul (1.0-4.8); ABS Monocytes 0.9 10^3/ul (0-0.8); ABS Neutrophils 4.3 10^3/ul (1.5-7.7); Eosinophil % 4.4 %; Hematocrit 36 % (42-52); Mean Corpuscular HGB Conc 34 g/dL (31-36); Mean Corpuscular Hemoglobin 30 pg (27-31); Mean Corpuscular Volume 89 fL (80-94); Platelet Count 322 10^3/uL (150-450); Red Blood Count 4.02 10^6 /uL (4.18-5.48); Red Cell Distribution Width 13 % (10-15); White Blood Count 7.4 10^3/uL (3.5-10.8)
[2019-02-19 06:43] LABS: Albumin 3.7 g/dL (3.2-5.2); Albumin/Globulin Ratio 1.5 (1-3); BUN/Creatinine Ratio 19.5 (8-20); Calcium 9.2 mg/dL (8.6-10.3); EGFR African American 120.9 (>60); EGFR Non-African American 99.9 (>60); Globulin 2.4 g/dL (2-4); Potassium 4.4 mmol/L (3.5-5.0); Total Bilirubin 1.1 mg/dL (0.2-1.0); Total Protein 6.1 g/dL (6.4-8.9)
[2019-02-19] MEDS: Docusate CAP* 100 MG PO SCH ×2 (09:20→20:08)
[2019-02-19] MEDS: Apixaban* 2.5 MG TAB PO SCH ×2 (09:23→20:08)
--- NOTE | 2019-02-19 10:51 | PN ---
Progress Note Date of Service: 02/19/19 Note: RADHIKA Pepe ABERNATHY was visited. Nursing and therapy notes read and reviewed. No chest pain, shortness of breath or abdominal pain. Current Medications: Active Medications Generic Name Dose Route Start Last Admin Trade Name Freq PRN Reason Stop Dose Admin Acetaminophen 650 mg 02/11/19 12:56 02/16/19 14:04 Tylenol Tab* PO 650 mg Q6H PRN Administration FEVER/PAIN Apixaban 2.5 mg 02/11/19 21:00 02/19/19 09:23 Eliquis* PO 2.5 mg BID JORDAN Administration Bisacodyl 10 mg 02/11/19 12:56 Dulcolax Supp* [place] DAILY PRN CONSTIPATION Docusate Sodium 100 mg 02/11/19 21:00 02/19/19 09:20 Colace Cap* PO Not Given BID JORDAN Lactulose 30 ml 02/11/19 19:10 Lactulose* PO Q6H PRN CONSTIPATION Lorazepam 0.5 mg 02/11/19 13:02 02/18/19 20:02 Ativan Tab(*) PO 0.5 mg Q6H PRN Administration ANXIETY Magnesium Hydroxide 30 ml 02/11/19 12:56 02/11/19 21:06 Milk Of Magnesia Liq* PO 30 ml Q6H PRN Administration CONSTIPATION Oxycodone/Acetaminophen 2 tab 02/11/19 13:01 02/19/19 09:23 Percocet 5/325 Tab* PO 2 tab Q4H PRN Administration PAIN - SEVERE Oxycodone/Acetaminophen 1 tab 02/11/19 13:02 02/19/19 04:13 Percocet 5/325 Tab* PO 1 tab Q4H PRN Administration PAIN - MODERATE TO SEVERE Senna 2 tab 02/11/19 21:00 02/18/19 19:59 Senokot Tab* PO Not Given BEDTIME [facility] Vital Signs: Vital Signs Temp Pulse Resp BP Pulse Ox 97.4 F 64 18 128/72 96 02/19/19 06:09 02/19/19 06:09 02/19/19 09:23 02/19/19 06:09 02/19/19 06:09 Lab Results: Laboratory Results - last 24 hr 02/19/19 02/19/19 05:32 05:32 WBC 7.4 RBC 4.02 L Hgb 12.0 L Hct 36 L MCV 89 MCH 30 MCHC 34 RDW 13 Plt Count 322 MPV 7.0 L Neut % (Auto) 58.0 Lymph % (Auto) 25.0 [place] % (Auto) 11.7 Eos % (Auto) 4.4 Baso % (Auto) 0.9 Absolute Neuts (auto) 4.3 Absolute Lymphs (auto) 1.9 Absolute Monos (auto) 0.9 H Absolute Eos (auto) 0.3 Absolute Basos (auto) 0.1 Absolute Nucleated RBC 0.0 Nucleated RBC % 0.0 Sodium 138 Potassium 4.4 Chloride 104 Carbon Dioxide 28 Anion Gap 6 BUN 15 Creatinine 0.77 Est GFR ( Amer) 120.9 Est GFR (Non-Af Amer) 99.9 BUN/Creatinine Ratio 19.5 Glucose 93 Calcium 9.2 Total Bilirubin 1.10 H AST 21 ALT 46 Alkaline Phosphatase 68 Total Protein 6.1 L Albumin 3.7 Globulin 2.4 Albumin/Globulin Ratio 1.5 Exam: GEN: no acute distress. alert and appropriate LUNGS: Clear to auscultation bilaterally HEART: regular rate and rhythm ABDOMEN: Soft, + bowel sounds, non-tender, non-distended EXTREMITIES: No edema. doe intact. NEUROLOGIC: BLE motor 5/5 with pain limited testing of right hip and knee. Sensation intact. Assessment/Plan: 68yo man s/p right hip fracture ORIF 1. Right hip fracture: f/u Dr. Monique. WBAT. PT/OT. Pain control with oral meds. 2. DVT ppx: eliquis 3. Anxiety: ativan prn, Xanax next week prior to d/c 4. Hypertension: follow VS. No prior medication. 5. Advanced directives: full code 6. Estimated LOS: 02/23/19 02/19/19 10:50
[2019-02-19] MEDS: Senna TAB PO SCH (20:09)
[2019-02-20] MEDS: oxyCODONE/Acetamin 5/325 MG* TAB PO PRN ×4 (03:08→23:45)
[2019-02-20] MEDS: Docusate CAP* 100 MG PO SCH ×2 (07:24→19:12)
[2019-02-20] MEDS: Apixaban* 2.5 MG TAB PO SCH ×2 (08:54→21:06)
--- NOTE | 2019-02-20 09:20 | PN ---
Progress Note Date of Service: 02/20/19 Note: RADHIKA ABERNATHY was visited. Nursing and therapy notes read and reviewed. No chest pain, shortness of breath or abdominal pain. Current Medications: Active Medications Generic Name Dose Route Start Last Admin Trade Name Freq PRN Reason Stop Dose Admin Acetaminophen 650 mg 02/11/19 12:56 02/16/19 14:04 Tylenol Tab* PO 650 mg Q6H PRN Administration FEVER/PAIN Apixaban 2.5 mg 02/11/19 21:00 02/20/19 08:54 Eliquis* PO 2.5 mg BID JORDAN Administration Bisacodyl 10 mg 02/11/19 12:56 Dulcolax Supp* [place] DAILY PRN CONSTIPATION Docusate Sodium 100 mg 02/11/19 21:00 02/20/19 07:24 Colace Cap* PO Not Given BID JORDAN Lactulose 30 ml 02/11/19 19:10 Lactulose* PO Q6H PRN CONSTIPATION Magnesium Hydroxide 30 ml 02/11/19 12:56 02/11/19 21:06 Milk Of Magnesia Liq* PO 30 ml Q6H PRN Administration CONSTIPATION Oxycodone/Acetaminophen 2 tab 02/11/19 13:01 02/19/19 09:23 Percocet 5/325 Tab* PO 2 tab Q4H PRN Administration PAIN - SEVERE Oxycodone/Acetaminophen 1 tab 02/11/19 13:02 02/20/19 03:08 Percocet 5/325 Tab* PO 1 tab Q4H PRN Administration PAIN - MODERATE TO SEVERE Senna 2 tab 02/11/19 21:00 02/19/19 20:09 Senokot Tab* PO Not Given BEDTIME [facility] Vital Signs: Vital Signs Temp Pulse Resp BP Pulse Ox 98.1 F 63 16 132/78 99 02/20/19 06:26 02/20/19 06:26 02/20/19 06:26 02/20/19 06:26 02/20/19 06:26 Exam: GEN: no acute distress. alert and appropriate LUNGS: Clear to auscultation bilaterally HEART: regular rate and rhythm ABDOMEN: Soft, + bowel sounds, non-tender, non-distended EXTREMITIES: No edema. doe and incision intact. NEUROLOGIC: BLE motor 5/5 with pain limited testing of right hip and knee. Sensation intact. PROCEDURE: Mumford removed and steri strips placed. No complications. Assessment/Plan: 68yo man s/p right hip fracture ORIF 1. Right hip fracture: f/u Dr. Monique. WBAT. doe removed 02/20/19. PT/OT. Pain control with oral meds. 2. DVT ppx: eliquis 3. Anxiety: switched to home xanax bid prn. 4. Hypertension: follow VS. No prior medication. 5. Advanced directives: full code 6. Estimated LOS: 02/23/19 02/20/19 09:19
[2019-02-20] MEDS: GLUCOSAMINE PO SCH (19:11)
[2019-02-20] MEDS: Senna TAB PO SCH (19:12)
[2019-02-20] MEDS: ALPRAZolam TAB* 0.25 MG PO PRN (23:45)
[2019-02-21] MEDS: oxyCODONE/Acetamin 5/325 MG* TAB PO PRN ×4 (04:15→20:02)
[2019-02-21] MEDS: Apixaban* 2.5 MG TAB PO SCH ×2 (08:16→20:04)
[2019-02-21] MEDS: Docusate CAP* 100 MG PO SCH (08:16)
[2019-02-21] MEDS: GLUCOSAMINE PO SCH ×2 (08:31→20:05)
--- NOTE | 2019-02-21 10:07 | PN ---
Progress Note Date of Service: 02/21/19 Note: RADHIKA ABERNATHY was visited. Nursing notes read and reviewed. No chest pain , shortness of breath or abdominal pain. Current Medications: Active Medications Generic Name Dose Route Start Last Admin Trade Name Freq PRN Reason Stop Dose Admin Acetaminophen 650 mg 02/11/19 12:56 02/16/19 14:04 Tylenol Tab* PO 650 mg Q6H PRN Administration FEVER/PAIN Alprazolam 0.25 mg 02/20/19 09:17 02/20/19 23:45 Xanax Tab* PO 0.25 mg BID PRN Administration ANXIETY Apixaban 2.5 mg 02/11/19 21:00 02/21/19 08:16 Eliquis* PO 2.5 mg BID JORDAN Administration Bisacodyl 10 mg 02/11/19 12:56 Dulcolax Supp* [place] DAILY PRN CONSTIPATION Docusate Sodium 100 mg 02/11/19 21:00 02/21/19 08:16 Colace Cap* PO Not Given BID JORDAN Glucosamine Sulfate 2 cap 02/20/19 21:00 02/21/19 08:31 Glucosamine Cap (Nf) PO 2 cap BID JORDAN Administration Lactulose 30 ml 02/11/19 19:10 Lactulose* PO Q6H PRN CONSTIPATION Magnesium Hydroxide 30 ml 02/11/19 12:56 02/11/19 21:06 Milk Of Magnesia Liq* PO 30 ml Q6H PRN Administration CONSTIPATION Oxycodone/Acetaminophen 2 tab 02/11/19 13:01 02/19/19 09:23 Percocet 5/325 Tab* PO 2 tab Q4H PRN Administration PAIN - SEVERE Oxycodone/Acetaminophen 1 tab 02/11/19 13:02 02/21/19 08:16 Percocet 5/325 Tab* PO 1 tab Q4H PRN Administration PAIN - MODERATE TO SEVERE Senna 2 tab 02/11/19 21:00 02/20/19 19:12 Senokot Tab* PO Not Given BEDTIME JORDAN Vital Signs: Vital Signs Temp Pulse Resp BP Pulse Ox 97.8 F 63 18 133/78 97 02/21/19 06:25 02/21/19 06:25 02/21/19 08:16 02/21/19 06:25 02/21/19 08:00 Exam: GEN: no acute distress. alert and appropriate LUNGS: Clear to auscultation bilaterally HEART: regular rate and rhythm ABDOMEN: Soft, + bowel sounds, non-tender, non-distended EXTREMITIES: No edema. steri strips intact. NEUROLOGIC: BLE motor 5/5 with pain limited testing of right hip and knee. Sensation intact. Assessment/Plan: 68yo man s/p right hip fracture ORIF 1. Right hip fracture: f/u Dr. Monique. WBAT. doe removed 02/20/19. PT/OT. Pain control with oral meds. 2. DVT ppx: eliquis 3. Anxiety: switched to home xanax bid prn. 4. Hypertension: follow VS. No prior medication. 5. Advanced directives: full code 6. Estimated LOS: 02/23/19 02/21/19 10:06
[2019-02-21] MEDS ORDERED: Docusate CAP* 100 MG PO PRN (10:08)
[2019-02-21] MEDS ORDERED: Senna TAB PO PRN (10:08)
[2019-02-21] MEDS: ALPRAZolam TAB* 0.25 MG PO PRN (12:11)
[2019-02-22] MEDS: oxyCODONE/Acetamin 5/325 MG* TAB PO PRN ×5 (00:50→22:51)
[2019-02-22] MEDS: GLUCOSAMINE PO SCH ×2 (08:21→20:08)
[2019-02-22] MEDS: Apixaban* 2.5 MG TAB PO SCH ×2 (08:21→20:08)
--- NOTE | 2019-02-22 09:04 | PN ---
Progress Note Date of Service: 02/22/19 Note: RADHIKA Cantu JOSEMANUEL was visited. Nursing notes read and reviewed. No chest pain , shortness of breath or abdominal pain. Current Medications: Active Medications Generic Name Dose Route Start Last Admin Trade Name Freq PRN Reason Stop Dose Admin Acetaminophen 650 mg 02/11/19 12:56 02/16/19 14:04 Tylenol Tab* PO 650 mg Q6H PRN Administration FEVER/PAIN Alprazolam 0.25 mg 02/20/19 09:17 02/21/19 12:11 Xanax Tab* PO 0.25 mg BID PRN Administration ANXIETY Apixaban 2.5 mg 02/11/19 21:00 02/22/19 08:21 Eliquis* PO 2.5 mg BID JORDAN Administration Bisacodyl 10 mg 02/11/19 12:56 Dulcolax Supp* [place] DAILY PRN CONSTIPATION Docusate Sodium 100 mg 02/21/19 10:08 Colace Cap* PO BID PRN CONSTIPATION Glucosamine Sulfate 2 cap 02/20/19 21:00 02/22/19 08:21 Glucosamine Cap (Nf) PO 2 cap BID JORDAN Administration Magnesium Hydroxide 30 ml 02/11/19 12:56 02/11/19 21:06 Milk Of Magnesia Liq* PO 30 ml Q6H PRN Administration CONSTIPATION Oxycodone/Acetaminophen 2 tab 02/11/19 13:01 02/19/19 09:23 Percocet 5/325 Tab* PO 2 tab Q4H PRN Administration PAIN - SEVERE Oxycodone/Acetaminophen 1 tab 02/11/19 13:02 02/22/19 08:21 Percocet 5/325 Tab* PO 1 tab Q4H PRN Administration PAIN - MODERATE TO SEVERE Senna 2 tab 02/21/19 10:08 Senokot Tab* PO BEDTIME PRN CONSTIPATION Vital Signs: Vital Signs Temp Pulse Resp BP Pulse Ox 97.9 F 62 18 130/74 96 02/22/19 05:42 02/22/19 05:42 02/22/19 08:21 02/22/19 05:42 02/22/19 05:42 Exam: GEN: no acute distress. alert and appropriate LUNGS: Clear to auscultation bilaterally HEART: regular rate and rhythm ABDOMEN: Soft, + bowel sounds, non-tender, non-distended EXTREMITIES: No edema. steri strips intact. NEUROLOGIC: BLE motor 5/5 with pain limited testing of right hip and knee. Sensation intact. Assessment/Plan: 68yo man s/p right hip fracture ORIF 1. Right hip fracture: f/u Dr. Monique. WBAT. doe removed 02/20/19. PT/OT. Pain control with oral meds. 2. DVT ppx: eliquis 3. Anxiety: switched to home xanax bid prn. 4. Advanced directives: full code 5. Estimated LOS: anticipate discharge tomorrow. Doing meds to beds program. Prescriptions were sent. 02/22/19 09:03
[2019-02-23] MEDS: oxyCODONE/Acetamin 5/325 MG* TAB PO PRN ×2 (03:37→08:38)
[2019-02-23 06:10] VITALS: BP 145/82
[2019-02-23] MEDS: ALPRAZolam TAB* 0.25 MG PO PRN (06:15)
[2019-02-23] MEDS: GLUCOSAMINE PO SCH (08:38)
[2019-02-23] MEDS: Apixaban* 2.5 MG TAB PO SCH (08:38)
--- NOTE | 2019-02-23 22:32 | DS ---
CC: Dr. Zack Mott * DISCHARGE SUMMARY: DATE OF ADMISSION: 02/11/19 DATE OF DISCHARGE: 02/23/19 DISCHARGE DIAGNOSES: 1. Right hip fracture. 2. Right medial knee replacement, 12/21/18. 3. Anxiety. 4. Osteoarthritis. HISTORY OF PRESENT ILLNESS AND HOSPITAL COURSE: For complete history of the events leading up to his rehab stay, please see the history and physical dictated by me on 02/11/19. While on the rehab unit, the patient remained medically stable. He was maintained on Eliquis for DVT prophylaxis. He received adequate analgesia with oral analgesics. The patient was otherwise medically stable. He was seen by both Physical and Occupational Therapy and made good gains with both disciplines. With physical therapy at the time of admission, the patient required contact guard of 2 people to do a transfer. He was able to ambulate, with contact guard of 2 people, about 5 feet. With occupational therapy at the time of admission, the patient required min assist for upper body dressing, total assistance for lower body dressing, mod assist of 2 people for bathing, total assistance for toileting. Min assist of 2 people for toilet transfer. By the time of discharge, the patient was independent in transfers, independent ambulating greater than 300 feet, independent going up and down stairs, independent with toileting, toilet transfers, dressing, and bathing. The patient was discharged home on 02/23/19. DISCHARGE DIET: Regular. DISCHARGE MEDICATIONS: Included: 1. Eliquis 2.5 mg orally twice daily. 2. Percocet 1 tablet every 4 hours as needed. 3. Xanax 0.25 mg twice daily as needed. 4. Ambien 10 mg at bedtime. 5. MiraLax 17 g every day as needed. 6. Senokot 2 tablets at bedtime as needed. CONDITION AT DISCHARGE: The patient was discharged in good condition. SERVICES AFTER DISCHARGE: Through the visiting nurse services, he will have home nursing, home physical therapy. FOLLOWUP: The patient will follow up with Dr. Dolores Monique, 03/10/19, and follow up with his primary care doctor, Dr. Zack Mott in 2 to 4 weeks. TIME SPENT: Time for this discharge was approximately 50 minutes, greater than half of which was spent with the patient explaining post-rehabilitation medications, therapies, and followup. [id number]/[facility] #: [id number] [facility]
== END 2019-02-23 13:30 | disposition home health service (06) | DRG 561 ==
LOC: PMRU 11:44
PROVIDERS: ADMIT Physical Medicine & Rehabilitation; ATTEND Physical Medicine & Rehabilitation
PROC: F07Z5ZZ Bed Mobility Treatment (ICD-10-PCS; principal; 2019-02-11)
PROC: F07Z9ZZ Gait Training/Functional Ambulation Treatment (ICD-10-PCS; 2019-02-11)
PROC: F07Z8ZZ Transfer Training Treatment (ICD-10-PCS; 2019-02-11)
PROC: F08Z0ZZ Bathing/Showering Techniques Treatment (ICD-10-PCS; 2019-02-11)
PROC: F08Z1ZZ Dressing Techniques Treatment (ICD-10-PCS; 2019-02-11)
PROC: F08Z3ZZ Feeding/Eating Treatment (ICD-10-PCS; 2019-02-11)
DX: S72.141D Displaced intertrochanteric fracture of right femur, subsequent encounter for closed fracture with routine healing (principal); F41.9 Anxiety disorder, unspecified; M19.90 Unspecified osteoarthritis, unspecified site; Z96.651 Presence of right artificial knee joint; K59.00 Constipation, unspecified; V19.88XD Pedal cyclist (driver) (passenger) injured in other specified transport accidents, subsequent encounter; Z79.899 Other long term (current) drug therapy; Z88.0 Allergy status to penicillin
CPT/HCPCS: 36415; 80053; 85025; A9270-GY

== ENCOUNTER 2019-06-17 08:06 | Day surgery (SDC) | payer MEDICARE, BC ==
[~2019-06-17 08:06] MED LIST changes: -Buffered Lidocaine 1% SYRIN* 1 ML/SYRINGE INTRADERM ONE; +Sodium Citrate/Citric Acid* 15 ML UDC ONE; +Sodium Citrate/Citric Acid* 15 ML UDC PO ONE; -Tranexamic Acid 1,000 MG in NS 0.9% 50 ML* (outpatient use) IV SCH
[2019-06-17] MEDS ORDERED: Clindamycin 900 MG/D5W BAG(*) 900 MG/50 ML BAG IVPB ONE (08:15)
[2019-06-17] MEDS ORDERED: Bupivacaine 0.25% SDV* 30 ML ONE (11:10)
[2019-06-17] MEDS ORDERED: fentaNYL* 50 MCG/ML 2 ML VIAL (100 MCG VIAL) ONE ×2 (11:18→13:53)
[2019-06-17] MEDS ORDERED: Dexamethasone IV* 4 MG/ML 1 ML (4 MG) ONE (11:29)
[2019-06-17] MEDS ORDERED: Naloxone* 0.4 MG/ML 1 ML VIAL IV PRN (11:43)
[2019-06-17] MEDS ORDERED: Ketorolac INJ* 30 MG/ML 1 ML VIAL IV PRN (11:43)
[2019-06-17] MEDS ORDERED: Ondansetron INJ* 2 MG/ML VIAL IV PRN (11:43)
[2019-06-17] MEDS ORDERED: Propofol* 10 MG/ML 20 ML BTL ONE (12:00)
[2019-06-17] MEDS ORDERED: Lidocaine 2% PF * 5 ML VIAL ONE (12:00)
[2019-06-17] MEDS ORDERED: Ketorolac INJ* 30 MG/ML 1 ML VIAL ONE (13:43)
[2019-06-17] MEDS: fentaNYL* 50 MCG/ML 2 ML VIAL (100 MCG VIAL) IV PRN ×4 (13:55→14:21)
[2019-06-17] MEDS ORDERED: HYDROcodone/ACETAMIN 5-325 MG* 1 TAB ONE (14:31)
[2019-06-17 15:30] VITALS: BP 145/90
--- NOTE | 2019-06-17 21:28 | OP ---
DATE OF OPERATION: 06/17/19 - [facility] DATE OF : 46 SURGEON: Alli Luciano MD FREIGHT RATE SPECIALIST: YOSI Araujo. An welder assistant was needed for the entirety of the procedure to aid in positioning of the arm and retraction. ANESTHESIOLOGIST: Dr. Gross ANESTHESIA: General. PRE-OP DIAGNOSES: 1. Left thumb carpometacarpal degenerative joint disease. 2. Left de Quervain's disease. 3. Left radial sensory nerve neuritis. POST-OP DIAGNOSES: 1. Left thumb carpometacarpal degenerative joint disease. 2. Left de Quervain's disease. 3. Left radial sensory nerve neuritis. OPERATIVE PROCEDURE: 1. Left thumb carpometacarpal arthroplasty with trapeziectomy. 2. Distally based split flexor carpi radialis tendon transfer with thumb suspension and tendon interposition. 3. Left de Quervain's release. 4. Left radial sensory nerve neurolysis. INDICATIONS: Mr. Alexis is 68. He has significant pain related to his CMC joint arthritis, de Quervain's and radial sensory nerve neuritis. He gets numbness and tingling out in the distribution of the radial sensory nerve. He has a Tinel sign just at the radial styloid. I talked to him about his treatment options, he wanted to proceed with surgery. He understands there is risk associated with it. ESTIMATED BLOOD LOSS: 2 mL. COMPLICATIONS: None. FINDINGS: See above and below. DESCRIPTION OF PROCEDURE: Mr. Alexis was seen in the preoperative holding area. The correct site, side, and procedure were identified. We came back to the operating room. The arm was prepped and draped in the usual fashion and a time-out was performed. The arm was exsanguinated with the Esmarch and the tourniquet was inflated to 225 mmHg. I made a 2 to 3 cm incision over the dorsal radial thumb metacarpal base. Dissection was carried down through the subcutaneous tissue longitudinally to preserve the sensory nerves. Radial artery was mobilized and retracted out of the way. Subperiosteal and capsular flaps were raised and the trapezium was exposed and released around the periphery from soft tissue. The rongeur was used to excise the trapezium in piecemeal fashion. Once it was completely excised and looking good, I went ahead and made a 1 cm incision over the dorsoradial second metacarpal base. Dissection was carried down the sensory nerve that was preserved. Subperiosteal dissection revealed the dorsal ulnar metacarpal base and placed a guidewire for the Arthrex Mini TightRope device into the appropriate locations on the dorsal radial aspect of the thumb metacarpal base and extending out the dorsal ulnar aspect of the second metacarpal base. This was confirmed on mini-C arm fluoroscopy. I then passed the FiberWire suture through the bone tunnel using the guidewire. The EndoButton was placed on the dorsoradial aspect of the second metacarpal base. A second button was placed over the first metacarpal and then this was tied off to preserve the space where the trapeziectomy had occurred. After that was all done, I went ahead and took the thumb to a full range of motion, but there was a clunk when I was circumducting the thumb. It was reproducible, was happening every single time. I was very concerned that this would be quite bothersome to him and so I went ahead and just removed the Arthrex Mini TightRope device. I decided to perform the procedure with a normal split flexor carpi radialis tendon transfer as I often do. I then made a 1 cm incision over the distal FCR tendon. The tendon sheath was released. The tendon was raised up out of the wound and split longitudinally and a 26-gauge wire was passed in the tendon split. I then made 2 more transverse incisions, each little bit more proximal than the left. The tendon sheath was released along its course. A Yjoti clamp was used to retrieve the wire in the distal wound and pulled it up into the proximal wound splitting the tendon and releasing half the tendon at the musculotendinous junction. The muscular remnants were removed. The free tendon tail was passed down into the thumb metacarpal base wound with two 26-gauge wires. The tendon was then split all the way down to the base of the second metacarpal. The free end was passed up to the bone tunnel, back around the intact limb of the tendon and then tension was set as the tendon transfer was secured with multiple 3 figure-of- eight 3-0 Ethibond sutures, the first sewing all 3 limbs of the tendon transfer together, the last two sewing intact limb to intact limb. The remainder of the tendon was rolled up as a ball and placed as an interposition proximal to the first metacarpal base. The scapho-trapezoid joint had looked good and so nothing was needed there. I went ahead and irrigated out the wound. The capsule was closed with 4-0 Vicryl suture. Skin was closed with 4-0 nylon suture. I then made a 3 cm longitudinal incision over the radial styloid. Dissection was carried down. The radial sensory nerve was seen. It was to be arborizing right in the area where it was quite neuritic and there was a positive Tinel sign which I had marked out preoperatively. I went ahead and performed a neurolysis along each branch of the nerve for a good 4 to 5 cm in proximal and distal. I made sure nothing was compressing or irritating the nerve. I did not note any neuroma that was frankly visible. After the neurolysis was performed, I retracted the nerve out of the way. I released the first dorsal compartment tendon sheath along the dorsal margin. The release was completed distally and proximally. There was an accessory compartment. Bit of its septum was excised to release that. Once the tendons were completely mobilized and everything was looking good, the wound was irrigated out. Skin was closed with 4-0 Nylon suture. A 0.25% plain Marcaine was infiltrated all about the operative areas. The wounds were dressed with Xeroform, 4x4's and sterile Webril and thumb spica splint with the IP joint free was applied. He was taken to the recovery room in stable condition. [id number]/[facility] #: [id number] [facility]
== END 2019-06-17 15:15 | disposition home or self-care (01) ==
LOC: OREAST 08:06
PROVIDERS: ATTEND Orthopaedic Surgery Hand Surgery
DX: M18.12 Unilateral primary osteoarthritis of first carpometacarpal joint, left hand (principal); M65.4 Radial styloid tenosynovitis [de Quervain]; G56.32 Lesion of radial nerve, left upper limb; F41.8 Other specified anxiety disorders; M10.9 Gout, unspecified
CPT/HCPCS: 88304; 88311; A9270-GY; C1776; J1100; J1885; J2704; J3010; J3490